=== PATIENT | male | born 1935 | race Caucasian/White ===

== ENCOUNTER 2016-08-24 22:29 | Inpatient (IN) | payer MEDICARE, OTHER ==
[~2016-08-24] VITALS: Ht 175.3 cm; Wt 89.5 kg
--- NOTE | ~2016-08-24 | CON ---
PATIENT'S NAME: ALBERT ISAAC [facility] AGE: 81 Y [address] ROOM: G6214 [place], [place] [address] LOCATION: GICU ADMIT DATE: 08/24/2016 Consultation DISCHARGE DATE: FAMILY PHYSICIAN: PHYSICIAN, UNKNOWN ATTENDING PHYSICIAN: LES MERAZ REFERRING PHYSICIAN: Josephine Mathias MD HISTORY OF PRESENT ILLNESS: I saw this 81-year-old man in the ICU today. He was admitted primarily because of progressive weakness in his left upper and lower extremities. On initially questioning him, he said he did not notice any weakness; however, on further questioning, he said, within the past month, he has noticed that his left upper limb had been getting weaker, especially the abductors of the left shoulder, and this was not secondary to pain. His also noticed that there has also been some progressive weakness on the left side, and on questioning how she felt that this was new, that it just started the day before he was brought to [place] [facility]. He does not normally see any physician. He denies any headaches. He, within the past week, has noticed some urinary incontinence which, from history, sounds like urge incontinence rather than overflow incontinence. He has severe degenerative changes in his left hip resulting in severe pain in his left hip which has literally limited his ability to ambulate. 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 There was no other abnormality. He denies any problems with his vision. He has not noticed any weakness or numbness on the right side. Denies any numbness or tingling in the upper or lower extremities. Denies any chest pain. No abdominal pain. The x-ray of the left hip did show end-stage degenerative changes in the left hip. He denies any vomiting. He does not have any fecal incontinence. PAST MEDICAL HISTORY: Apart from the fusion of his right ankle, past medical history was nil of note. There were no other significant medical problems in the medical history. ALLERGIES: NO KNOWN ALLERGIES TO MEDICATION. MEDICATIONS: He is not on any medication except the oluo-afa-mctkwci health pills. FAMILY HISTORY: Noncontributory. SOCIAL HISTORY: He used to smoke about a pack of cigarettes per day, stopped smoking about 42 PATIENT'S NAME: ALBERT ISAAC [facility] AGE: 81 Y [address] ROOM: G62[address] [place], [place] [address] LOCATION: [facility] ADMIT DATE: 08/24/2016 Consultation DISCHARGE DATE: FAMILY PHYSICIAN: PHYSICIAN, UNKNOWN ATTENDING PHYSICIAN: LES MERAZ years ago. He does not drink alcohol or use illegal drugs. 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 The rest of the review of systems is essentially negative. PHYSICAL EXAMINATION: GENERAL: On examination in the ICU, this is a 81-year-old right-handed male who is awake. He is alert. Does not appear to be in any acute distress. VITAL SIGNS: His blood pressure is 129/60, the pulse is 73 and irregular, respirations are 17, and temperature is 97.6. HEENT: Normocephalic. NECK: There is no tenderness on palpating the cervical spinous processes. No restriction of movement of the cervical spine. CHEST: Clear. CARDIAC: Heart rate is irregular. ABDOMEN: Soft. Normal bowel sounds. NEUROLOGICAL: Cranial nerve examination is normal except for left facial nerve weakness. The motor examination shows a marked weakness of the left deltoid. Moderate weakness of the left upper extremity evidenced by left upper extremity drift. Grossly, the left lower extremity strength is normal except for reduced strength in the left extensor hallucis longus. The reflexes are normal. There is no Babinski. DIAGNOSTIC DATA: He had an MRI of the brain done after he had a CT scan, shows a right frontal lesion with accompanying edema and mass effect. 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 PLAN: At this time is to: 1. Arrange to go ahead and excise the tumor. 2. With regard to his urinary symptoms, I was going to get the urologist to see him. At this time, he wants us to deal with the intracranial lesion first, and then after that, any one could deal with the left hip osteoarthritis, he will definitely need a total hip on that left side. JOSEPHINE MATHIAS MD PATIENT'S NAME: ALBERT ISAAC [facility] AGE: 81 Y [address] ROOM: [place] [address] LOCATION: [facility] ADMIT DATE: 08/24/2016 Consultation DISCHARGE DATE: FAMILY PHYSICIAN: PHYSICIAN, UNKNOWN ATTENDING PHYSICIAN: LES MERAZ/zach /[id number] d: 08/25/16 1758 t: 08/31/16 1413, CONSULTATION REPORT
--- NOTE | ~2016-08-24 | CON ---
PATIENT'S NAME: ALBERT ISAAC [facility] AGE: 81 Y [address] ROOM: [place] [address] LOCATION: GICU ADMIT DATE: 08/24/2016 Consultation DISCHARGE DATE: FAMILY PHYSICIAN: PHYSICIAN, UNKNOWN ATTENDING PHYSICIAN: LES MERAZ DATE OF CONSULTATION: 08/25/2016 REFERRING PHYSICIAN: Tiffany Mathias MD REASON FOR CARDIOLOGY CONSULTATION: Atrial fibrillation. HISTORY OF PRESENT ILLNESS: This is a 81-year-old male, who was transferred from [place], [place] after finding a brain mass of 3.1 cm in his right frontal lobe. He initially presented there for evaluation due to leg pain and weakness as well as facial droop. He states he does not regularly see a healthcare provider and denies any health history other than this recent complaints of leg pain and difficulty standing. He states "I am very healthy and always very active." This consult requested due to him being found to be in an atrial fibrillation with controlled rate response on his EKG both in [place] and upon admission to [facility]. He denies chest pain, shortness of breath, dyspnea on exertion, palpitations, presyncope, syncope, nausea, or vomiting. PAST MEDICAL HISTORY: The patient denies any past medical history. FAMILY HISTORY: No noted family history from patient's recollection. SOCIAL HISTORY: The patient is a former cigarette smoker. He smoked 1 pack of cigarettes per day for a total of 10 years. He denies alcohol or illicit drug use. CURRENT MEDICATIONS: 1. Decadron 4 mg IV every 6 hours. 2. Pepcid IV 20 mg twice daily. 3. NovoLog subcu on a moderate sliding scale per every 6 hour Accu-Cheks. MEDICATION ALLERGIES: No known medication allergies. REVIEW OF SYSTEMS: Pertinent positives listed in the HPI. All other review of systems evaluated and negative. PATIENT'S NAME: ALBERT ISAAC [facility] AGE: 81 Y [address] ROOM: [place] [address] LOCATION: [facility] ADMIT DATE: 08/24/2016 Consultation DISCHARGE DATE: FAMILY PHYSICIAN: PHYSICIAN, UNKNOWN ATTENDING PHYSICIAN: LES MERAZ DIAGNOSTICS: [facility] evaluation shows sodium of 139, potassium 3.8, BUN of 15, creatinine 1.1, glucose of 252, magnesium of 2.2. Cardiac enzymes show a CPK of 35, CK-MB of 1.1, and troponin I of less than 0.04. He also has a proBNP of 811. PHYSICAL EXAMINATION: VITAL SIGNS: Temperature 98.2, pulse 88, respirations 22, blood pressure 118/53, O2 saturation 95% on room air. The patient weighs 89.2 kg. SKIN: [place], warm, and dry. EYES: Sclerae are clear. No xanthelasmas. ENT: Oral mucosa is pink and moist. No jugular venous distention. No carotid bruits. CHEST: Respirations are even and unlabored. LUNGS: Clear to auscultation. HEART: Irregular rate and rhythm. Normal S1 and S2. No murmurs, rubs, or gallops. ABDOMEN: Soft and nontender. MUSCULOSKELETAL: Noted decreased muscle strength to his left upper and lower extremities. He has normal strength to his right upper and lower extremities against resistance. EXTREMITIES: Peripheral pulses palpable. No clubbing or cyanosis noted. Does have mild to moderate lower extremity edema present. PSYCH: Alert and oriented. Mood and affect are appropriate. IMPRESSION AND PLAN: Per Dr. Virginia Ramires, 1. Atrial fibrillation with controlled ventricular rate. Unsure of the chronicity of this diagnosis due to him not having any medical treatment previously other than his most recent admission. We will check an echocardiogram to fully evaluate ejection fraction as well as look for wall motion and valvular abnormalities. No sinus symptoms at this time of acute decompensated congestive heart failure or acute coronary syndrome. 2. Right frontal lobe brain mass, currently under the care of the Hospitalist Service as well as Neurosurgery. 3. Hypertension, currently awaiting full medication reconciliation of his home medications to see if there was previous medications that we could adjust, otherwise, we will need to add medications to fully control his hypertension. Once again, this is an unfortunate 81-year-old male, admitted to [facility] with stroke symptoms and then transferred to [facility] after finding a brain mass, which could possibly be suggestive of a glioblastoma multiforme. He was found to be in atrial fibrillation but once again, his rates are controlled. Awaiting echo for full evaluation of his valves and PATIENT'S NAME: ALBERT ISAAC [facility] AGE: 81 Y [address] ROOM: [address] [place] [address] LOCATION: [facility] ADMIT DATE: 08/24/2016 Consultation DISCHARGE DATE: FAMILY PHYSICIAN: PHYSICIAN, NYA ATTENDING PHYSICIAN: LES MERAZ left ventricular ejection fraction. Depending on the echo, we will adjust echo findings and we will adjust medications. At this time, he is not a candidate for anticoagulation given his large brain mass in the right frontal lobe. We will continue to monitor, evaluate, and treat as appropriate. Thank you for this consult. Thank for allowing [facility] to interact in the care of this patient. SHIKHA ARAMBULA APRN FOR MD TYRON BURKETT/zach /[id number] d: 08/25/16 1406 t: 09/11/16 1134, CONSULTATION REPORT
--- NOTE | ~2016-08-24 | ECHO ---
Transthoracic Echocardiography Report (TTE) Demographics Patient Name ALBERT ISAAC Date of Study 08/25/2016 Patient Number [id number] Visit Number [id number] Date of 1935 Room Number G6214 Accession Number [id number] Gender Male Age 81 year(s) Referring Lilian Martin MD Meat Packer Rigo Carmona RDCS, Physician RVT Physician Interpreting Keyla Coleman Confidential Secretary Physician Supervising Ordering Physician Lilian Martin MD, MD/MLP Nurse Stress Mechanical Systems Design Engineer Conclusions Contractility Score Summary Normal Left Ventricular contractility was noted. Summary Technically difficult exam due to body habitus. Normal LV/RV size and systolic function. The estimated left ventricular ejection fraction is 60-65%. Severe biatrial enlargement. Dilated IVC with poor inspiratory collapse consistent with elevated RA pressure. The aortic valve is moderately sclerotic. There is moderate pulmonary hypertension. The pulmonary pressure (RVSP) is 49.57 mmHg. IVC imaging is consistent with normal RA pressures. Procedure Type of Study TTE procedure:2D Echocardiogram, Echo with Contrast. Procedure Date Date: 08/25/2016 Start: 12:02 PM Study Location: Inpatient Portable Technical Quality: Adequate visualization Indications:Atrial fibrillation. Appropriate Use Criteria: 9 Patient Status: Routine Contrast Medium: Definity. Amount - 4 ml HR: 65 bpm BP: 141/61 mmHg M-Mode/2D Measurements LV Diastolic Dimension: 4.55 cm LV Systolic Dimension: 1.38 cm LV Septum Diastolic: 0.85 cm LV PW Diastolic: 0.99 cm AO Root Dimension: 3 cm Cardiac Output: 6.64 l/min AV Cusp Separation: 1.8 cm RV Diastolic Dimension: 3.03 cm LA volume: 108 ml LVOT: 2.2 cm RV Base: 4.27 cm LVOT VTI: 26.9 cm RV Mid: 2.21 cm LV Stroke volume: 102.2 ml TAPSE: 2.42 cm TDI-S': 12.1 cm/s Doppler Measurements AV Peak Velocity: 2.14 m/s MV Peak E-Wave: 1.2 m/s AV Peak Gradient: 18.32 mmHg AV Mean Gradient: 11 mmHg MV P1/2t: 57 msec LVOT Peak Velocity: 1.22 m/s TR Velocity:2.94 m/s PV Peak Velocity: 1.3 m/s TR Gradient:34.57 mmHg PV Peak Gradient: 6.76 mmHg Estimated RAP:15 mmHg Estimated PASP: 49.57 mmHg Estimated RVSP: 50 mmHg E' Septal Velocity: 0.09 m/s E' Lateral Velocity: 0.11 m/s Findings Left Ventricle Diastolic function indeterminate due to patient's arrhythmia. The left ventricle is normal in size . Right Ventricle Normal right ventricular size and function. Left Atrium The left atrium is severely dilated by LA volume index measurement. Right Atrium The right atrium is severely dilated. IVC imaging is consistent with normal RA pressures. IVC measures 2.1 and collapses with inspiration. Mitral Valve Mild mitral regurgitation by color Doppler. Mild mitral annular calcification. Aortic Valve The aortic valve is moderately sclerotic. The aortic valve is moderately calcified with reduced leaflet motion of the non-coronary cusp. Tricuspid Valve Mild to moderate tricuspid regurgitation by color Doppler. There is moderate pulmonary hypertension. The pulmonary pressure (RVSP) is 49.57 mmHg. Pulmonic Valve Normal pulmonic valve structure and function. Trace PI. Pericardial Effusion No evidence of pericardial effusion. Miscellaneous Visualized portions of the aortic root and ascending aorta appear normal in size. Pleural Effusion No evidence of pleural effusion. Contractility Score LV regional wall motion:(0-Non visualized 1-Normal 2-Hypokinesis 3-Akinesis 4-Dyskinesis 5-Aneurysm) Signature dtt: CONNIE JURADO dtd: 08/25/16 1202 Physician Self Edit
--- NOTE | ~2016-08-24 | CON ---
PATIENT'S NAME: ALBERT ISAAC [facility] AGE: 81 Y [address] ROOM: [place] [address] LOCATION: GICU ADMIT DATE: 08/24/2016 Consultation DISCHARGE DATE: FAMILY PHYSICIAN: PHYSICIAN, UNKNOWN ATTENDING PHYSICIAN: LES MERAZ DATE OF CONSULTATION: 08/30/2016 REFERRING PHYSICIAN: Tiffany Mathias MD REASON FOR CONSULTATION: Possible colon mass. HISTORY OF PRESENT ILLNESS: This is a very pleasant 81-year-old male, who was transferred from [place] after findings of a 3.1 cm brain mass in the right frontal lobe. He initially presented with leg pain and weakness as well as facial droop. He did undergo right frontal brain tumor craniotomy and total excision of the tumor on 08/29/2016. During a CT scan of the thorax, which was reviewed per Dr. Mathias and Radiology, there was questionable mass at the hepatic flexure within the colon. We were asked to see in consultation. The patient was seen and examined. He denies any history of colonoscopy. The patient does state that he intermittently has some lower abdominal discomfort. He admits not frequently doctors or healthcare facilities often. The patient does state that intermittently, he did have some bright red blood per rectum. He denies any baljit abdominal pain at this time. No nausea or vomiting, chest pain, chest pressure, shortness of breath, fever, chills, night sweats. PAST MEDICAL HISTORY: Right frontal brain tumor, status post excision and craniotomy. PAST SURGICAL HISTORY: Craniotomy. No history of upper endoscopy or colonoscopy. SOCIAL HISTORY: The patient is a former cigarette smoker. He smoked a pack of cigarettes per day for a total of 10 years. Denies any alcohol or illicit drug use. FAMILY HISTORY: The patient denies any gastrointestinal diseases or cancers within his family to his recollection. ALLERGIES: NO KNOWN MEDICATION ALLERGIES. PATIENT'S NAME: ALBERT ISAAC [facility] AGE: 81 Y [address] ROOM: [place] [address] LOCATION: GICU ADMIT DATE: 08/24/2016 Consultation DISCHARGE DATE: FAMILY PHYSICIAN: PHYSICIAN, UNKNOWN ATTENDING PHYSICIAN: LES MERAZ CURRENT MEDICATIONS: Please refer to the medication administration record. REVIEW OF SYSTEMS: A 10-point review of systems was completed. All were negative except for those identified in the history of present illness. PHYSICAL EXAMINATION: GENERAL: A pleasant 81-year-old male, sitting in the chair, who appears to be in no acute distress. VITAL SIGNS: Temperature 97.9, pulse of 77, respirations of 18, blood pressure 149/64, and oxygen saturations 95% on room air. SKIN: [place], warm, dry. No jaundice. HEENT: Head is normocephalic and atraumatic. Pupils are equal, round, and reactive to light. Sclerae clear. Nonicteric. Oral mucosa is pink and moist. No thyromegaly. NECK: Soft and supple. CARDIOVASCULAR: Regular. Normal S1 and S2. RESPIRATORY: Respirations even and unlabored. LUNGS: Clear to auscultation. ABDOMEN: Soft, round, nondistended, nontender. Bowel sounds positive x4 quadrants. MUSCULOSKELETAL: No muscle weakness or atrophy. EXTREMITIES: No clubbing, cyanosis, or edema. NEUROLOGICAL: Grossly nonfocal. LABORATORIES AND DIAGNOSTICS: White blood cell count of 17.6, hemoglobin of 13.8, hematocrit of 42.2, platelet of 267. Chemistry panel includes a glucose of 139, BUN of 18, creatinine 0.7, sodium 138, potassium of 4.3, chloride of 105, CO2 of 25, albumin of 2.8, phosphorus of 2.7. Again, the patient did undergo a CT of his thorax with possible mass noted at the hepatic flexure within the large colon. ASSESSMENT AND PLAN: Again, this is a very pleasant 81-year-old male, who presents to an outside facility, ultimately finding of right frontal brain mass, that was excised and underwent craniotomy. We were asked to see in consultation for possible hepatic flexure colon mass seen on the CT scan. At this time, the patient and patient's are insistent about going home and performing a screening colonoscopy completed as an outpatient. It was discussed in depth with the patient as well as Dr. Mathias as the patient will be made an appointment following us in clinic in approximately 1 to 2 weeks, and we will continue to follow the patient, so he will undergo colonoscopy for further evaluation with possible biopsy and diagnosis of possible hepatic flexure mass. We will also review the CAT scan with Dr. Martinez for complete examination. PATIENT'S NAME: ALBERT ISAAC [facility] AGE: 81 Y [address] ROOM: [address] [place], [place] [address] LOCATION: [facility] ADMIT DATE: 08/24/2016 Consultation DISCHARGE DATE: FAMILY PHYSICIAN: PHYSICIAN, NYA ATTENDING PHYSICIAN: LES MERAZ Thank you for this consult and allowing us to participate in the care of this patient. SUMA SHUKLA APRN FOR MD LINDSAY PETTIT/zach /[id number] d: 08/30/16 2354 t: 09/08/16 1834, CONSULTATION REPORT
--- NOTE | ~2016-08-24 | CON ---
PATIENT'S NAME: MARLIN [facility] AGE: 81 Y [address] ROOM: [place] [address] LOCATION: [facility] ADMIT DATE: 08/24/2016 Consultation DISCHARGE DATE: FAMILY PHYSICIAN: PHYSICIAN, UNKNOWN ATTENDING PHYSICIAN: LES MERAZ DATE OF CONSULTATION: 08/26/2016 REFERRING PHYSICIAN: Tiffany Mathias MD REASON FOR REFERRAL: Abnormal CT of the chest. HISTORY OF PRESENT ILLNESS: The patient is a 81-year-old gentleman admitted with neurologic changes and a mass in his brain. Subsequent evaluation by chest x-ray and CT scan demonstrated multiple pulmonary masses. PAST MEDICAL HISTORY: ALLERGIES: NONE. MEDICATIONS: Please refer to the nurses notes. ILLNESSES: Degenerative arthritis. FAMILY HISTORY: Unremarkable. SOCIAL HISTORY: . No alcohol use. Very distant tobacco use. SYSTEM REVIEW: As per HPI. PHYSICAL EXAMINATION: GENERAL: Awake and alert, in no distress. ENT: Unremarkable. NECK: Normal. CHEST: Hyperinflated. LUNGS: Diminished. HEART: Regular. ABDOMEN: Nontender. PATIENT'S NAME: ALBERT ISAAC [facility] AGE: 81 Y [address] ROOM: [place] [address] LOCATION: [facility] ADMIT DATE: 08/24/2016 Consultation DISCHARGE DATE: FAMILY PHYSICIAN: PHYSICIAN, UNKNOWN ATTENDING PHYSICIAN: LES MERAZ EXTREMITIES: No clubbing or edema. ASSESSMENT: Multiple pulmonary masses, which appeared to be metastatic. That is likely the case with the brain lesion as well. Primary has not been established. PLAN: We will perform CT-guided needle biopsy of the most accessible pulmonary mass to establish cell type. MD SARAH AMAYA/modl /[id number] d: 08/26/16918 t: 09/15/16 1016, CONSULTATION REPORT
--- NOTE | ~2016-08-24 | HP ---
PATIENT'S NAME: ALBERT ISAAC [facility] AGE: 81 Y [address] ROOM: [facility] [place] [address] LOCATION: [facility] ADMIT DATE: 08/24/2016 History & Physical DISCHARGE DATE: FAMILY PHYSICIAN: PHYSICIAN, UNKNOWN ATTENDING PHYSICIAN: LES MERAZ DATE OF SERVICE: ADDENDUM: Code status: Full code. Time spent in care on the day of admission 40 minutes including chart review, interviewing the patient, examining the patient, addressing all the questions and concerns that the patient and the patient's had. I also went over the plan of care with the patient, the patient's , and the ICU nurses. MD KAUR LAIRD/zach /[id number] D: [id number] T: [id number] HISTORY & PHYSICAL
--- NOTE | ~2016-08-24 | CON ---
PATIENT'S NAME: MARLIN [facility] AGE: 81 Y [address] ROOM: [place] [address] LOCATION: [facility] ADMIT DATE: 08/24/2016 Consultation DISCHARGE DATE: FAMILY PHYSICIAN: PHYSICIAN, UNKNOWN ATTENDING PHYSICIAN: LES MERAZ DATE OF CONSULTATION: 08/26/2016 REFERRING PHYSICIAN: Tiffany Mathias MD HISTORY OF PRESENT ILLNESS: The patient is a 81-year-old male, admitted secondary to progressive left- sided weakness. On evaluation, the patient was noted to have a right frontal lobe brain mass. The patient has experienced urinary incontinence along with frequency, but denies urgency. The patient denies a history of prior prostate problems. I had nursing staff check postvoid residuals. His residuals varied from 0 to 198 mL, although these were obtained while lying down which certainly could decrease his ability to void. PAST MEDICAL HISTORY: The patient denies any medical problems. PAST SURGICAL HISTORY: Right ankle fusion. MEDICATIONS: None other than gyut-alg-uxodino at admission. ALLERGIES: NONE. SOCIAL HISTORY: The patient is a nonsmoker, stopping 40 years ago. He does not consume alcohol. REVIEW OF SYSTEMS: Negative. PHYSICAL EXAMINATION: GENERAL: An elderly male, in no acute distress. LUNGS: Clear bilaterally. CARDIAC: Regular rhythm and rate. ABDOMEN: Benign. : Within normal limits. RECTAL: Normal tone. Prostate smooth, approximately 25 to 30 g in size. PATIENT'S NAME: ALBERT ISAAC [facility] AGE: 81 Y [address] ROOM: [place] [address] LOCATION: [facility] ADMIT DATE: 08/24/2016 Consultation DISCHARGE DATE: FAMILY PHYSICIAN: PHYSICIAN, UNKNOWN ATTENDING PHYSICIAN: LES MERAZ IMPRESSION: Probable benign prostatic hyperplasia with lower urinary tract symptoms. PLAN: We will start Flomax and then recheck a bladder scan, postvoid residuals. MD CLYDE HUTCHINSON/zach /[id number] d: 08/26/16 1153 t: 09/11/16 1915, CONSULTATION REPORT
--- NOTE | ~2016-08-24 | DS ---
PATIENT'S NAME: [facility] AGE: 81 Y [address] ROOM: [id number] [place], [place] [address] LOCATION: [facility] ADMIT DATE: 08/24/2016 Discharge Summary DISCHARGE DATE: 09/05/2016 FAMILY PHYSICIAN: Physician, Unknown ATTENDING PHYSICIAN: Leon Quintana PRINCIPAL DIAGNOSES: 1. Right frontal brain mass adenocarcinoma. 2. Status post right frontal craniotomy with total excision of tumor, microsurgically. 3. Concern for colon cancer. 4. Atrial fibrillation. 5. Hypertension. 6. Leukocytosis. 7. Benign prostatic hypertrophy. 8. Hyperglycemia. HOSPITAL COURSE: This is a 81-year-old male who was found to have a right frontal mass by CT scan at an outlying facility. He was referred to our hospital for admission. Hospitalists were admitting, Neurosurgery was consultants. He was placed in the ICU for close monitoring, started on IV Decadron and tight blood pressure control. An MRI of the brain for further investigation, confirmed a 3.5 cm enhancing mass in the right frontal lobe with adjacent mass effect and edema. Neurosurgery made recommendations for surgical removal. Preoperative evaluation found the patient to be in atrial fibrillation. So, a cardiology consultation was obtained. Echocardiogram showed a preserved LV ejection fraction of 60% to 65%. Notably of severe biatrial enlargement with a moderately sclerotic aortic valve. There was also known moderate pulmonary hypertension. He was observed on telemetry. He was not a candidate for oral anticoagulation given his frontal lobe mass. He was rate controlled. He was ultimately given cardiac clearance. The patient did have some urinary retention as noted on bladder scan. A urology consultation was obtained. A Chirinos catheter was placed. A prostate was slightly enlarged, so he was started on Flomax. Further investigation by chest x-ray showed right infrahilar area pulmonary mass with additional smaller rounded areas concerning for pulmonary nodules. A CT scan of the chest was obtained to show innumerable noncalcified pulmonary masses bilaterally measuring up to 4.3 cm. Concerning for metastatic disease, a pulmonology consult was obtained and recommendations were made for CT guided needle biopsy. After risks, benefits, and alternatives were discussed, the patient elected to not undergo a lung biopsy. He was transitioned to the neuro trauma unit. He showed he has some mild improvement from steroid therapy as well as physical occupational therapy standpoint. He was optimized PATIENT'S NAME: AL[facility]ERT ISAAC [facility] AGE: 81 Y [address] ROOM: [id number] [place], [place] [address] LOCATION: [facility] ADMIT DATE: 08/24/2016 Discharge Summary DISCHARGE DATE: 09/05/2016 FAMILY PHYSICIAN: Physician, Unknown ATTENDING PHYSICIAN: Leon Quintana for surgery. Risks, benefits, and alternatives were discussed and the patient proceeded on 08/29, where he underwent the excision of the tumor with craniotomy. Postoperatively, he was taken to the intensive care unit for close observation, placed on Dilantin for seven days for seizure prophylaxis. Observed on telemetry with routine nursing care. Restarted on physical and occupational therapy. He did not have any atrial fibrillation problems, his rates were controlled. The biopsy from the brain showed adenocarcinoma which was felt to be metastatic in nature. This was concerning for primary etiology in the colon. Where a CT abdomen and pelvis had showed an apple-core lesion in the right colon suspicion for of the primary malignancy. It had a nonobstructive pattern. Gastroenterology consultation was obtained. Initially, the patient wished to follow up as an outpatient; however, changed his mind. It took 2 days to complete the prep, requiring an NG tube. In the meantime, having postop delirium, had a fall without complications, CT scan of the brain confirmed that it was stable and no evidence of trauma from the fall. He may progress before having the colonoscopy completed. In the colonoscopy, he had extensive melanosis coli throughout the colon, but no large lesions were seen in the ascending sigmoid colon and rectum. There was noted slightly deformed area of the cecum at the junction with the terminal ilium. Multiple biopsies were taken for pathology. He recovered without complication. An oncology consultation was obtained with recommendations based upon final biopsy results. The patient's postoperative delirium state had vastly improved over the next few days. He had made some progress with his therapies, but not well enough to be independent at home. Recommendations were for swing bed, transitioned, his care management helped to arrange this. Also note, the patient has a significant history of left hip and knee osteoarthritis, x-rays confirmed this. Consultation with Dr. Burr was obtained and the patient refused any injection. DVT prophylaxis was maintained with pneumatic compression devices in lieu of anticoagulation that was contraindicated in the patient's case. RADIOLOGIC IMAGING: Pertinent positive information as gathered above and MRI of the brain on August 25 showed a 3.5 cm enhancing mass in the right frontal lobe with adjacent mass effect and edema. A followup MRI postoperatively showed complete excision of the right frontal lobe mass without evidence of complication. A CT of the brain on August 31 after fall showed no trauma and stable CT of the head postoperatively. Chest x-ray on August 25 showed concerns for pulmonary nodules further evidenced by a CT of the thorax with contrast showing innumerable noncalcified pulmonary masses bilaterally measuring up to 4.3 cm. PATIENT'S NAME: [facility] AGE: 81 Y [address] [place] [facility] [place], [place] [address] [facility] ADMIT DATE: 08/24/2016 Discharge Summary DISCHARGE DATE: 09/05/2016 FAMILY PHYSICIAN: Physician, Unknown ATTENDING PHYSICIAN: Leon Quintana KUB of the abdomen because of abdominal distention showed some early concerns of obstruction, but CT of the abdomen and pelvis showed a nonobstructive bowel pattern, but did show an enhanced apple-core lesion in the right colon. Of interesting note, there was also noted small bilateral adrenal nodules as well. Left hip x-ray shows severe degenerative changes of the left hip with joint space narrowing, deformity of the femoral head, extensive osteophyte formation, extensive subchondral cyst at the left femoral head and left acetabulum. Left knee x-ray showed degenerative changes at the knee most pronounced anterior and lateral knee compartments with small joint effusion. No acute fracture or dislocation seen. LABORATORY DATA: Pertinent results of cardiac enzymes were negative. White blood cell count on 09/05 showed a descending white blood cell count of 18.2 from 27.3, hemoglobin of 13.2, hematocrit 39.3, and a platelet count of 208. Chemistry panel on 09/04 showed a glucose of 118, BUN of 12, creatinine of 0.5, it was normal during his stay. Sodium 136, potassium 4.2, chloride 102, CO2 of 26, calcium is 7.7, phosphorus of 2.9, magnesium 1.9, and GFR greater than 60. Sedimentation rate of 22, hemoglobin A1c of 6.6, INR 1.1. Pre- albumin of 11, TSH of 1.860, CEA of 7.6. DISCHARGE MEDICATIONS: 1. Amlodipine 5 mg p.o. twice daily. 2. Decadron 2 mg p.o. 3 times daily x3 days, stop date is 09/07 at 0700 hours. 3. Decadron 2 mg p.o. twice daily, indefinitely starting 09/07 at 2100 hours. 4. Pepcid 20 mg p.o. twice daily. 5. Lasix 20 mg p.o. every morning, stop date 09/06 at 0900 hours. 6. Hydrochlorothiazide 12.5 mg p.o. every day. 7. NovoLog moderate sliding scale before meals and at bedtime. 8. Melatonin 6 mg p.o. every night at bedtime. 9. Dilantin 200 mg p.o. twice daily through 09/05 at 10:00 a.m. 10. Flomax 0.4 mg p.o. daily at 1900 hours. 11. Colon formula p.o. every day and water. 12. Tylenol 325-650 mg p.o. every 4 hours as needed. 13. [place] 5/325 mg 1-2 tablets p.o. every 4 hours needed. 14. D50 IV push for hypoglycemia as per protocol. 15. Glucagon 1 mg subcutaneous for hypoglycemia as per protocol. 16. Glucose 16 g p.o. hypoglycemia as per protocol. 17. [place] nasal spray 2 sprays each naris as needed for dryness. DISCHARGE INSTRUCTIONS: The patient will be discharged to [facility] PATIENT'S NAME: AL[facility]ERT ISA[facility] AGE: 81 Y [address] ROOM: [place] [address] LOCATION: [facility] ADMIT DATE: 08/24/2016 Discharge Summary DISCHARGE DATE: 09/05/2016 FAMILY PHYSICIAN: Physician, Unknown ATTENDING PHYSICIAN: Leon Quintana under the care of Davida Roper APRN. I spoke with her on the phone. She has graciously accepted the patient. The patient will be transported by his significant other by private auto. Followup appointments to include Neurosurgery Dr. Mathias. His office will call when to schedule the appointment. [facility] cardiology in the next [address] Felix in the next [address]. [address] Burr in the next 2 weeks for his left hip and knee. To see the radiation oncologist, Dr. Templeton in 2 weeks. At the time of discharge, colon biopsy results are pending. Dr. Gonzales still felt like the tissue if negative could be further evaluated with specific staining or molecular evaluation. He may benefit from interventional therapy. We encouraged the patient to follow up with Oncology to review those results and information. He stated complete understanding of this. CODE STATUS: Full code. DIET: As tolerated. Weightbearing is as tolerated with occupational, physical therapy to evaluate and treat the patient as indicated. Blood glucose checks with before each meal and at bedtime. Urinary catheter has been removed and the patient has been voiding adequately on his own. Further recommendations were made to continue Flomax. Rehab potential is fair. Discharge potential is fair. The patient and his family are well aware of the condition and prognosis of the patient. Above line of management discussed with the patient and his significant other, whose all questions were answered with statements of understanding. Total time arranging discharge with collaborating specialist, care management, nursing, and therapies was greater than 30 minutes. Thank you for allowing us to participate in the care of this patient while at [facility]. PATIENT'S NAME: AL[facility]ERT ISA[facility] AGE: 81 Y [address] ROOM: [place] [address] LOCATION: [facility] ADMIT DATE: 08/24/2016 Discharge Summary DISCHARGE DATE: 09/05/2016 FAMILY PHYSICIAN: Physician, Unknown ATTENDING PHYSICIAN: Leon Quintana KEVON GARLAND APRN, APRN FOR MD YOANA RICHARDS/zach /[id number] CC: MD Tiffany Villareal MD Ann M Young, APRN d: t: 09/06/16 1243, DISCHARGE SUMMARY
--- NOTE | ~2016-08-24 | HP ---
PATIENT'S NAME: ALBERT ISAAC [facility] AGE: 81 Y [address] ROOM: [id number] [place], [place] [address] LOCATION: [facility] ADMIT DATE: 08/24/2016 History & Physical DISCHARGE DATE: FAMILY PHYSICIAN: PHYSICIAN, UNKNOWN ATTENDING PHYSICIAN: LES MERAZ DATE OF SERVICE: CHIEF COMPLAINT: Left lower extremity weakness. HISTORY OF PRESENT ILLNESS: This is a 81-year-old male, who does not have a primary care physician and rarely seen a physician in the past, who is also a poor historian. The story is directly obtained from the patient and the patient's spouse. The story is that the patient chronically has this left hip pain from advanced degenerative joint disease. However, recently, his left lower extremity besides the hip pain has been getting weaker and weaker. He also has a new onset urinary incontinence about 1 week ago. Because of the worsening of the weakness of the left lower extremity, the patient's was concerned about the patient, therefore, today, they went to [facility] for evaluation. Over there, the patient had a blood work performed, which was unremarkable, and CT scan of the brain without contrast over there showed 3.1 cm mass in the right frontal lobe with vasogenic edema. Mass effect with 10 mm ibfng-es-qcrs subfalcine herniation and effacement of the right lateral ventricle. Differential consideration include glioblastoma multiforme, metastatic disease, and brain abscess in the appropriate clinical setting. The patient also had a CT of the lumbar spine without contrast due to the concern of the urinary incontinence of one-week onset showed severe degenerative changes involving the lumbar spine. No evidence of acute bony abnormality. The patient also had x-ray of the left hip performed, showed end-stage degenerative changes of left hip. No acute fracture or dislocation. The patient also had EKG performed showed atrial fibrillation with a heart rate in the 80, not sure if this is new or this is chronic given that the patient does not regularly see a physician. Upon further questioning, the patient denies any headache or blurry vision or nausea or vomiting or sensation loss or fecal incontinence or fecal retention or any other symptoms. The only significant complaint is left hip pain, which is chronic, and also acute on chronic left lower extremity weakness, worsening in the last few weeks. No chest pain. No shortness of breath. No palpitation and no other symptoms. Again, the patient is a poor historian. The story is obtained directly from the patient and the patient's spouse. The PATIENT'S NAME: ALBERT ISAAC [facility] AGE: 81 Y [address] ROOM: [place] [address] LOCATION: [facility] ADMIT DATE: 08/24/2016 History & Physical DISCHARGE DATE: FAMILY PHYSICIAN: PHYSICIAN, UNKNOWN ATTENDING PHYSICIAN: LES MERAZ spouse could not also provide much history either. The spouse denies any confusion in the patient. The patient was always alert and oriented x3 and never had a slurred speech or seizure activity. REVIEW OF SYSTEMS: As mentioned in the history of present illness. All other systems reviewed and negative except those mentioned in the history of present illness. PAST MEDICAL HISTORY: None according to the patient. ALLERGIES: NONE ACCORDING TO THE PATIENT. HOME MEDICATIONS: None according to the patient. SOCIAL HISTORY: The patient was a former cigarette smoker about one pack per day for 10 years. He quit about 40 years ago. The patient denies any alcohol or any illegal drug use. PAST SURGICAL HISTORY: Status post right foot surgery in the past. The patient denies any other surgery according to the patient. FAMILY HISTORY: Both parents from advanced age. Father from Alzheimer, mother also from Alzheimer. PHYSICAL EXAMINATION: VITAL SIGNS: At the time of my dictation, temperature 98, blood pressure 170/70, heart rate 80, respirations 14, saturation 98% on room air. Pain 0/10. GENERAL APPEARANCE: Alert and oriented x3. He is somewhat slow in processing information, but he is oriented x3 and answers questions appropriately. No acute distress. HEENT: Pupils are equally round, and reactive to light. Extraocular muscles intact. Pupils size about 4 mm. Bilaterally reactive to light. Anicteric sclerae. Visual field is intact in all 4 quadrants. Nasal turbinates are normal bilaterally. Moist oral mucosa. Slight left-sided facial droop. No tongue deviation upon protrusion. No slurred speech. NECK: No JVD. No cervical lymphadenopathy. No neck stiffness. PATIENT'S NAME: ALBERT ISAAC [facility] AGE: 81 Y [address] ROOM: [place] [address] LOCATION: [facility] ADMIT DATE: 08/24/2016 History & Physical DISCHARGE DATE: FAMILY PHYSICIAN: PHYSICIAN, UNKNOWN ATTENDING PHYSICIAN: LES MERAZ CARDIOVASCULAR: Irregularly irregular rate and rhythm. No murmur. No rubs, no gallops. RESPIRATORY: Clear. ABDOMEN: Obese, soft, nontender, nondistended, normal bowel sounds, no hepatosplenomegaly. No palpable mass. EXTREMITIES: Bilateral pitting edema in bilateral lower extremities in anterior shins. SKIN: No ulcer, no rash, no cyanosis. NEUROLOGIC: Cranial nerves 2 through 12 are remarkable for a slight facial droop on the left side when asked to smile or show teeth. Sensation is intact. Vibration, however, somewhat decreased in the left lower extremity. Muscle strength about 4/5 on the left lower extremity. The patient says that it is because of left hip pain. Ucyvpf-xx-rqpl intact. Lodn-gb-lwqc intact. Babinski is positive in the left foot. Deep tendon reflex difficult to assess given the patient has edema. Sensation intact. Gait not assessed due to fall risk. Proprioception intact. No slurred speech. No tongue deviation upon protrusion. Pronator drift negative bilaterally. MUSCULOSKELETAL: Left hip pain to palpation due to osteoarthritis. Range of motion is somewhat limited due to pain in the left lower extremity. Muscle strength is 4/5 in the left lower extremity. LABORATORY DATA: Blood work from the outside facility today on admission shows CK-MB 1.2, troponin 0.08, CPK 42. BUN 14, creatinine 0.9, glucose 107, calcium 9.2. AST 19, ALT 22, alkaline phosphatase 86, total bilirubin 0.5, total protein 7.2, albumin 3.4, sodium 139, potassium 4.2, chloride 102. White blood cells 11.5, hemoglobin 14.7, hematocrit 43.7, platelet 297. IMAGING STUDIES: EKG on admission shows atrial fibrillation with heart rate in the 80. No prior EKG for comparison. CT of the brain without contrast on admission from the outside facility shows 3.1 cm mass in the right frontal lobe with vasogenic edema. Mass effect with 10 mm wbtba-qm-waml subfalcine herniation and effacement of the right lateral ventricle. Differential consideration includes glioblastoma multiforme, metastatic disease, and brain abscess in the appropriate clinical setting. CT of the lumbar spine without contrast on admission from the outside facility shows severe degenerative joint disease involving the lumbar spine. No evidence of acute bony abnormality. X-ray of the left hip on admission from the outside facility shows end-stage degenerative change of the left hip. No acute fracture or dislocation. PATIENT'S NAME: ALBERT ISAAC [facility] AGE: 81 Y [address] ROOM: [id number] [place], [place] [address] LOCATION: [facility] ADMIT DATE: 08/24/2016 History & Physical DISCHARGE DATE: FAMILY PHYSICIAN: PHYSICIAN, UNKNOWN ATTENDING PHYSICIAN: LES MERAZ ASSESSMENT AND PLAN: 1. Regarding his 3.1 cm mass in the right frontal lobe with vasogenic edema and mass effect with 10 mm rfmdk-fj-iwkt subfalcine herniation and effacement of the right lateral ventricle: Differential per CT report includes glioblastoma multiforme, metastatic disease, and brain abscess in the right clinical setting. Less likely is brain abscess given the patient is not septic, there is no fever, there is no leukocytosis. Probably is glioblastoma multiforme or metastatic disease. The plan has already been discussed with the on-call neurosurgeon, Dr. Mathias, since the transfer from the outside facility. The plan will be IV Decadron 10 mg, which he actually got from outside facility, we will continue with 4 mg q.6 hours; also IV Pepcid 20 mg b.i.d., he got it 1 dose outside already. Regular diet. Keep the systolic blood pressure less than 150. We will get a chest x-ray to rule out any lung mass to see if there is any primary lung cancer causing metastasis to the brain. We will also get MRI of the head with and without contrast to better visualize the brain mass. PT and OT. Currently, the patient is alert and oriented x3. Denies any headache or any nausea or vomiting. Neurosurgery will see the patient in the morning. I will give him IV Ativan 2 mg q.5 minutes p.r.n. for active seizure. Keppra could be considered, but I will defer to the neurosurgery evaluation first. Regarding possibility of other primary tumor causing metastasis to the brain, x-ray will be performed, if necessary, we will get a mendez CT including CT of the chest and abdomen and pelvis as part of the cancer workup. Further plan depends on clinical course. I will check vitals every 2 hours, and watch his blood pressure closely and control with IV hydralazine p.r.n. and IV labetalol p.r.n. to keep the blood pressure less than 150. 2. Regarding his atrial fibrillation, not RVR: Not sure if this is new or chronic given that there is no prior EKG for comparison, and the patient rarely sees a physician and does not have a primary care physician and has never been told he had atrial fibrillation. Of course, currently, the anticoagulation will be contraindicated in the setting of a brain mass, and his [id number] score is 2 points for age more than 75-year- old. He probably also has other medical problems including hypertension, but since he never sees a physician, I will not account this as part of the score. I will continue telemetry monitoring. Currently, heart rate is in 80. I will order IV Lopressor 2.5 to 5 mg q.4 hours p.r.n. for heart rate more than 110. I will get an echo transthoracic in the morning. Also, check labs in the morning including one set of cardiac enzymes. I will consult Cardiology in the morning for the long-term care of his atrial fibrillation. Currently, EKG does not show any ischemia. There is no chest pain. Therefore, the patient is not in acute coronary syndrome and also not in atrial fibrillation with RVR. One set of cardiac enzyme was performed in the outside facility and it was normal. 3. Deep venous thrombosis prophylaxis: He will be on compression devices. PATIENT'S NAME: ALBERT ISAAC [facility] AGE: 81 Y [address] ROOM: [place] [address] LOCATION: [facility] ADMIT DATE: 08/24/2016 History & Physical DISCHARGE DATE: FAMILY PHYSICIAN: PHYSICIAN, UNKNOWN ATTENDING PHYSICIAN: LES MERAZ In the setting of a brain tumor, pharmacological prophylaxis will be avoided in the risk of having a brain hemorrhage. CODE STATUS: DICTATION ENDS HERE. LES MERAZ MD CC/thomasl /[id number] D: [id number] T: [id number] HISTORY & PHYSICAL
--- NOTE | ~2016-08-24 | OR ---
PATIENT'S NAME: ALBERT ISAAC [facility] AGE: 81 Y [address] ROOM: [address] [address] LOCATION: [facility] ADMIT DATE: 08/24/2016 OR/Procedure Report DISCHARGE DATE: FAMILY PHYSICIAN: PHYSICIAN, UNKNOWN ATTENDING PHYSICIAN: LES MERAZ SURGEON: Tiffany Mathias MD ORTHOPEDIC ASSISTANT: DATE OF PROCEDURE: 08/29/2016 PREOPERATIVE DIAGNOSES: Right frontal brain tumor. POSTOPERATIVE DIAGNOSIS: Right frontal brain tumor. OPERATIONS PROPOSED AND PERFORMED: 1. Right frontal craniotomy and total excision of tumor microsurgically. 2. Microscope. 3. Duraplasty. 4. Stealth neuronavigational system to assist in total excision of tumor. 5. Application of Kevin head clamp. OPERATION IN DETAIL: Under general anesthesia, the patient was positioned supine. The head was fixed in a Kevin head clamp which was then attached to the bed. The right frontal region was prepped and draped in the usual fashion. Prior to prepping and draping, we registered the [employer] equipment on the computer, and after prepping and draping the patient, a curvilinear incision was then carried out extending from the temporal region, curving upwards and anteriorly. The pericranium as well as the temporalis muscle were incised and reflected from the skull using the Bovie. The scalp as well as the temporalis muscle and fascia were reflected as a unit and was retracted using fish hooks. Next, 3 bur holes were then carried out; 1 in the temporal region, and 2 in the frontal region, and a free frontotemporal bone flap was then fashioned out. Fortunately, the dura was stuck to the bone, and so the middle portion of the dura came off with the bone. Using the Stealth neuronavigational system, we were able to get in do a cerebrotomy at the area where the tumor was closest to the surface, and we were able to then identify the tumor. Next, we continued dissection in the plane between the tumor and normal brain. A microscope was brought in. With the aid of the microscope, we were able to completely excise the tumor. Prior to getting it all out, we took a piece and sent it to the pathology for frozen section which turned out to be metastatic tumor adenocarcinoma. Having completely excised the tumor, the wound was thoroughly irrigated with bacitracin irrigation. We then laid pieces of Oxycel on the wall of the cavity of the tumor for further hemostasis. Hemostasis was carried out primarily with bipolar cautery. Next, we went ahead and did a duraplasty to cover the region of the dural defect using the dural repair graft. Next, the bone flap was screwed to the rest of PATIENT'S NAME: ALBERT ISAAC [facility] AGE: 81 Y [address] ROOM: [address] [address] LOCATION: [facility] ADMIT DATE: 08/24/2016 OR/Procedure Report DISCHARGE DATE: FAMILY PHYSICIAN: PHYSICIAN, UNKNOWN ATTENDING PHYSICIAN: LES MERAZ the skull using the small Synthes plates, and the scalp was then closed in the usual 2-layered fashion. The patient tolerated the procedure well and was taken to the recovery room. MD JEANNA COOPER/zach /[id number] d: 08/29/16 1758 t: 08/31/16 1415, OPERATIVE SUMMARY
--- NOTE | ~2016-08-24 | HP ---
PATIENT'S NAME: ALBERT ISAAC AGE: 81 Y [address] ROOM: [facility] [place] [place], [place] [address] LOCATION: [facility] ADMIT DATE: 08/24/2016 History & Physical DISCHARGE DATE: 09/05/2016 FAMILY PHYSICIAN: Physician, Unknown ATTENDING PHYSICIAN: Leon Quintana DATE OF SERVICE: REASON FOR CONSULTATION: Arthritis, left hip and knee. 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 He has had pain and some weakness in his left hip and knee for a couple of years. Pain is in the groin and in the medial knee. He denies any history of surgery, fracture, or injury to his hip or knee. It does cause him to limp, bothers him sometimes at night. He thinks he may have had an injection in the left knee a few years ago, which helped for a while. Feels like his left side may be a little weak but that is most likely related to the pain. Pain does interfere with his sleep. He rates it sometimes 9 or 10, sometimes a 3 or 4. He has a history of nodules in his lungs. He has had a colonoscopy which did not reveal any lesions in the colon, but there was on CT scan a mass. He had a craniotomy by Dr. Mathias several days ago at which time a 3.5-cm adenocarcinoma was removed from his right brain. He has seen some doctors out in [place] regarding his hip and was told that he might some day he need a hip and/or knee replacement. ALLERGIES: NONE TO MEDICATION. MEDICATIONS: On admission, none. MEDICAL PROBLEMS: 1. Cerebral atrophy. 2. History of tobacco use one pack per day for 25 years, abstained since 1976. 3. Atrial fibrillation. 4. Atherosclerotic heart disease. 5. Benign prostatic hypertrophy. 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 7. Atherosclerotic vascular disease. 8. Adrenal nodules. 9. Pulmonary nodules. PATIENT'S NAME: ALBERT ISAAC AGE: 81 Y [address] ROOM: [address] [address] LOCATION: [facility] ADMIT DATE: 08/24/2016 History & Physical DISCHARGE DATE: 09/05/2016 FAMILY PHYSICIAN: Physician, Unknown ATTENDING PHYSICIAN: Leon Quintana 10. Obesity. 11. History of right ankle fracture. 12. Pneumonia. SOCIAL HISTORY: Retired pak. History of distant tobacco use. 1-2 alcoholic beverages per day. Two cups of coffee per day. FAMILY HISTORY: Mother may have of bowel cancer at the age of 90. SURGICAL HISTORY: Colonoscopy. REVIEW OF SYSTEMS: No recent blackout spells, dizziness, or blurred vision. No nausea. He has had hematochezia, occasional constipation, and diarrhea. No incontinence. No chest pain or shortness of breath. Occasional palpitations. Memory is less than it was. No hallucinations. No visual changes or auditory changes. He has gained weight. PHYSICAL EXAMINATION: GENERAL: Obese male. VITAL SIGNS: Pulse 84, blood pressure 170/75, respirations 18, temperature 98, and O2 saturations 97% on room air. BMI is 30.7. HEENT: He has a partially shaved head, has had a right frontal craniotomy with a clean wound. No adenopathy. Pupils equal, round, and reactive to light. Extraocular movements intact. NECK: Supple. CHEST: Clear to auscultation. HEART: Irregular rhythm. ABDOMEN: Obese, soft, no masses. EXTREMITIES: Pulses intact. Trace ankle edema. Left hip has tenderness in the groin internal rotation 0 degrees, external rotation, 10 degrees, abduction 5 degrees, extension 0 degrees. Left knee ranges from 0-135 degrees. Drawer and Wang's negative. No collateral laxity. No warmth, redness or effusion. He ambulates with a limp favoring his left lower extremity. Leg lengths equal pelvis level. Spine is nontender. NEUROLOGIC: Sensation and motor function intact upper extremity. Pulses good. Reflexes equal. DIAGNOSTIC DATA: AP and lateral, left hip demonstrate loss of joint space, sclerosis, osteophytes, and cystic changes. Diagnosis, severe degenerative arthritis, left hip. X-rays left knee show loss of joint space, sclerosis, and PATIENT'S NAME: ALBERT ISAAC AGE: 81 Y [address] ROOM: [place] [address] LOCATION: [facility] ADMIT DATE: 08/24/2016 History & Physical DISCHARGE DATE: 09/05/2016 FAMILY PHYSICIAN: Physician, Unknown ATTENDING PHYSICIAN: Leon Quintana osteophytes. Diagnosis, moderately severe degenerative arthritis, left knee. IMPRESSION: 1. Severe degenerative arthritis, left hip. 2. Moderately severe degenerative arthritis, his left knee. 3. 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 4. Possible lung cancer. 5. History of smoking. 6. Possible atrial fibrillation. 7. Cerebral atrophy. 8. Atherosclerotic heart disease. 9. Benign prostatic hypertrophy. 10. Pancreatic atrophy. 11. Obesity. PLAN: Discussed treatment options. I do not think surgery is anything to consider right now considering his other medical issues low on priority. I discussed injecting the hip and/or knee. He says he just does not want to have that done. Weight loss would be of help. He was given exercises. Take Tylenol. Probably stay away from anti-inflammatories, he may cause an ulcer and exacerbate his cardiovascular issues. At some point, injections could be considered. If his overall medical condition improves greatly and his cancer is either cured or brought under good control, one could consider a hip or knee replacement. I discussed the nature of surgical and nonsurgical treatments. I explained the details of each with him and his . He is being transferred to the swing bed in [place]. If he desires further treatment, he can contact me, make arrangements for a visit. MD JESUS LAW/zach /[id number] CC: Tiffany Mathias MD D: [id number] T: [id number] HISTORY & PHYSICAL
--- NOTE | ~2016-08-24 | CON ---
PATIENT'S NAME: ALBERT ISAAC [facility] AGE: 81 Y [address] ROOM: [address] [address] LOCATION: [facility] ADMIT DATE: 08/24/2016 Consultation DISCHARGE DATE: FAMILY PHYSICIAN: PHYSICIAN, UNKNOWN ATTENDING PHYSICIAN: LES MERAZ REFERRING PHYSICIAN: Tiffany Mathias MD HISTORY OF PRESENT ILLNESS: Albert Isaac is a 81-year-old man with adenocarcinoma in the brain. The history of present illness is obtained from Mr. Isaac, who is a fair historian though he underwent a craniotomy 2 days ago; Mrs. Isaac who is a good historian; the patient's neurosurgeon, Dr. Mathias; and review of the records forwarded from [place] and the [facility] record. The patient was in his normal state of health until 1 year ago. Indeed, the patient wonders if his left leg weakness may have developed 2 to 3 years ago. For 1 year the patient's left hip has been sore and he has experienced progressive left leg weakness. It is difficult to ascertain whether he is describing limitation in motion due to left hip pain as weakness, because he has definitely developed left leg weakness more recently, which has been much more pronounced. The patient's left leg weakness did not prompt him to seek medical assistance until recently. The patient also acknowledges that he has had some pruritus ani and hematochezia following bowel movements for a year. In early 07/2016, the patient developed right lower quadrant pain which he described as "sore and crampy." Richer foods precipitated the pain on some occasions. The pain interfered with his sleep and activity and he gauged the severity as 9 on a scale of 10 at worse. The patient had never experienced this before. Pepto-Bismol was no help. The patient noticed severe pain after he ate 2 chili dogs in the last week and ended up vomiting and experiencing distention. This symptom improved. The patient then developed functional urinary incontinence as he was unable to get to the bathroom before losing bladder control. He has noted this symptom since early August 2006. The patient then developed a stiff neck. He presented to the clinic in [place]. He does not remember who he saw. He does know that steroids were prescribed, physical therapy was recommended, and a colonoscopy was scheduled. The patient recalls he had a Hemoccult positive stool. The patient continued to experience healthcare difficulties and finally on 08/24/2016 his persuaded him to present to the emergency room in [place], [place]. At [place], he was seen by Kristen Griffith PA-C. An EKG revealed atrial fibrillation and a possible old anterior septal infarct. The patient's main complaint in the emergency room was left leg weakness. A CAT scan of lumbar spine revealed severe osteoarthritis in the lumbar spine with no evidence of acute bony abnormality. There was multilevel disc space narrowing with vacuum disc phenomena. There was suspected severe canal stenosis at L2-L3 and moderate canal stenosis at L3-L4, and [id number] canal stenosis at L4- PATIENT'S NAME: ALBERT ISAAC [facility] AGE: 81 Y [address] ROOM: [id number] [place], [place] [address] LOCATION: [facility] ADMIT DATE: 08/24/2016 Consultation DISCHARGE DATE: FAMILY PHYSICIAN: PHYSICIAN, UNKNOWN ATTENDING PHYSICIAN: LES MERAZ. The soft tissues were unremarkable. A two view of the left hip revealed end-stage osteoarthritis. The CK and troponin levels were normal. The general chemical profile was unremarkable except for a slightly low albumin of 3.4 g/dL[place] [address], the hemoglobin was 14.7 g/dL, the MCV 93, and the platelets were 297,000. A CAT scan of the head was obtained and revealed a 3.1 cm mass in the right frontal lobe of the brain with vasogenic edema. The patient was transferred to Dr. Meraz's hospitalist service. Dr. Meraz consulted Dr. Mathias. The workup at [facility] on 08/25/2016 revealed the urinalysis was unremarkable. The procalcitonin was normal. The white count was 17,800, the hemoglobin was 13.6, the MCV was 93, and the platelets were 292,000. The patient had 92% neutrophils and 5% lymphocytes (at the time this assay was obtained, the patient was on dexamethasone). The general chemical profile was not repeated at [facility] but the albumin has fallen to 2.8 g/dL. The hemoglobin A1c was 6.6%. A MRI of the brain confirmed the presence of a 3.5 cm mass with irregular margins at the right frontal lobe. There was heterogeneous enhancement of the mass on postcontrast imaging with enhancement predominantly at the periphery. The mass was centered at the periventricular white matter in the right frontal lobe. There was local mass effect with effacement of sulci in the right frontal lobe. There was extensive vasogenic edema, decreased T1 and increased T2 signal in the white matter at the anterior aspect of the right cerebral hemisphere. The frontal horn of the right lateral ventricle was effaced and there was slight midline shift toward the left in the frontal region. No other enhancing masses were identified. There were mild generalized atrophic changes with prominence of the sulci and CSF spaces. A CAT scan of the chest revealed numerous noncalcified pulmonary nodules in both lungs. The largest measured 4.3 cm in the posterior mid right chest. A CAT scan of the abdomen and pelvis revealed small bilateral adrenal nodules. There was an apple-core lesion in the right colon just proximal to the hepatic flexure, which was nonobstructive. Prominent fluid distended the colon proximally and distal to the lesion. This was consistent with a recent colon prep. There was moderate aortoiliac atherosclerosis. There was severe end-stage osteoarthritis in the left hip. A preoperative echocardiogram revealed mild aortic sclerosis and moderate pulmonary hypertension and severe biatrial enlargement with a normal left ventricular ejection fraction of 60% to 65%. Dr. Mathias recommended and then performed, on 08/29/2016 a right frontal craniotomy and total excision of tumor microsurgically with microscope. He performed a duraplasty. Dr. Mathias applied the Kevin head clamp. He used the [employer] neuronavigational system to assist in total excision of the tumor. PATIENT'S NAME: ALBERT ISAAC [facility] AGE: 81 Y [address] ROOM: [id number] [place], [place] [address] [facility] ADMIT DATE: 08/24/2016 Consultation DISCHARGE DATE: FAMILY PHYSICIAN: PHYSICIAN, UNKNOWN ATTENDING PHYSICIAN: LES MERAZ The frozen section revealed adenocarcinoma (voice report from Dr. Mathias). A colonoscopy has been scheduled. Mr. Isaac had not seen a physician in a long time. He has no history of documented cancer prior to this hospitalization. The patient smoked 1 pack per day of cigarettes for 20-25 years, but has abstained for 40 years. ACTIVE MEDICAL PROBLEMS (CHRONIC AND DIAGNOSED): 1. Osteoarthritis at least in the left hip, lumbar spine, left knee and bilateral shoulders. 2. Cerebral atrophy on MRI scan. 3. Tobacco use, 1 pack per day for 20-25 years, but has abstained since 1976. 4. Atrial fibrillation, duration unknown. The patient has not seen a doctor and does not report any palpitations. 5. ?Atherosclerotic heart disease?-the EKG reveals no R-waves in the V1-V3 leads. 6. ?Benign prostatic hypertrophy? This is a clinical diagnosis. The prostate was smooth and 25-30 g when the patient was seen by Dr. Underwood on 08/26/2016. 7. Pancreatic atrophy, noted on CAT scan. 8. Atherosclerotic vascular disease with aortoiliac atherosclerosis noted on CAT scan. 9. Small bilateral adrenal nodules, uncharacterized. 10. Severe biatrial enlargement, moderate pulmonary hypertension and moderate aortic sclerosis noted on echocardiogram in 2017. 11. Perennial rhinitis. 12. Class I obesity. BMI 30.7 kg/m2. ACUTE MEDICAL ILLNESSES (RESOLVED), PAST SURGERIES AND INJURIES: 1. In 1956, pneumonia. 2. In 2006, right ankle fracture, treated with fusion. MEDICATIONS UPON ADMISSION: 1. The patient was on no outside medications. 2. The patient was on dexamethasone following his encounter in the [place] [facility]. ADVERSE REACTIONS TO MEDICATIONS, TRANSFUSIONS, ALLERGIES: None. TOBACCO: 1 pack per day for 22-25 years, abstained since 1976. ALCOHOL: PATIENT'S NAME: ALBERT ISAAC [facility] AGE: 81 Y [address] ROOM: [place] [address] [facility] ADMIT DATE: 08/24/2016 Consultation DISCHARGE DATE: FAMILY PHYSICIAN: PHYSICIAN, UNKNOWN ATTENDING PHYSICIAN: LES MERAZ 1-2 alcoholic beverages a day, a mixed drink, wine or beer. The patient may have drank more heavily, but he is reticent and will not quantify how much and over what period of time he drank or even if his past alcohol use led to health problems or social problems. CAFFEINE: 2 cups of coffee per day. IMMUNIZATIONS: Negative flu, negative Pneumovax, negative tetanus in the last 10 years, negative varicella zoster virus. FAMILY HISTORY: The patient's mother may have of bowel cancer around age 90. SOCIAL HISTORY: The patient was born and raised an [place]. He has been a rancher for many years. He was in the [employer] for 10 to 15 years. The patient has been for 11 years. This is his first marriage and he has no children. His grew up in [place] in the [place] the [facility]. On occasion, the patient will go to the [facility]. 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 REVIEW OF SYMPTOMS: 1. The patient's appetite is unchanged, but he acknowledges that his bowel movements have been more frequent. Sometimes the BMs are hard and sometimes they are soft. He has had no incontinence. 2. As he thinks about it, he may have had some irregular palpitations for 2 months. PHYSICAL EXAMINATION: VITAL SIGNS: Pulse is 84 and regular, blood pressure 170/75, respiratory rate 18, temperature 98.2, SPO2 97% on room air, height 69 inches, weight 208 pounds, BMI 30.7 kg/M2. GENERAL: Well-developed, obese, 81-year-old male, in no acute distress. HEENT: Status post right frontal craniotomy. The patient currently has bandages over his wound, acne rosacea, facial telangiectasia, otherwise unremarkable. LYMPH NODES: Not palpable. NECK: Without JVD or carotid bruits. SKIN: Park angiomas. CHEST: Clear anteriorly. CV: Irregularly irregular rhythm with no murmurs, bruits or adventitious sounds. PATIENT'S NAME: ALBERT ISAAC [facility] AGE: 81 Y [address] ROOM: [place] [address] [facility] ADMIT DATE: 08/24/2016 Consultation DISCHARGE DATE: FAMILY PHYSICIAN: PHYSICIAN, UNKNOWN ATTENDING PHYSICIAN: LES MERAZ ABDOMEN: No masses, tenderness, or organomegaly. GENITALIA AND RECTAL: Not examined. EXTREMITIES: The pulses are 2+ in the upper extremities. The patient has compression devices over the calf. NEURO: The patient is able to walk with a walker and one-person assist. His strength is 5/5 on the right and 4/5 in the left leg. IMPRESSION: 1. A 81-year-old man with a 1 to 3 year history of left hip pain and left leg weakness, a 2-month history of right lower quadrant abdominal pain, history of hematochezia for a year, recent development of loss of bladder control on occasion, vomiting on 1 occasion, stiff neck, more frequent bowel movements, mild anemia, low albumin, a mass just proximal to the hepatic flexure of the colon on CAT scan, multiple pulmonary nodules on CAT scan, and a 3.7 cm adenocarcinoma in the right frontal lobe of the brain with no sign of residual cancer in the brain following surgical removal on postoperative MRI. 2. 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 It is conceivable, given his tobacco history, he has a primary lung cancer that has spread to the lungs and brain with a separate early colon cancer. 3. Risk factors for colon cancer include his age of 81, [place] descent, tobacco use, and class I obesity. 4. We expect this to be a chronic lifelong disease. Cures are exceedingly rare and unexpected. 5. We have to relieve this. 6. Our goals are palliative. 7. There are multiple considerations. a. Immunohistochemical testing to confirm the adenocarcinoma in the brain is compatible with a colon cancer (or not). b. Colonoscopy to determine the degree of obstruction and to confirm the tissue in the colon resembles the cancer in the brain (and is cancer). c. Surgery to removed the cancer in the colon, if it is confirmed to be a cancer and the patient is at risk for obstruction. d. We would have to weigh the pros and cons of surveillance of the brain with MRI scans versus stereotactic radiation therapy to the involved area the brain versus whole brain radiation over 10 to 15 days. e. Chemotherapy and possibly targeted antibody therapy to shrink the cancer in the lung (to thee presumed but not biopsy-proven cancers). f. The patient will have to weigh the pros and cons of best supportive care with Hospice. g. A clinical trial may be a consideration. RECOMMEND: Diagnostic: PATIENT'S NAME: ALBERT ISAAC [facility] AGE: 81 Y [address] ROOM: [place] [address] LOCATION: [facility] ADMIT DATE: 08/24/2016 Consultation DISCHARGE DATE: FAMILY PHYSICIAN: PHYSICIAN, UNKNOWN ATTENDING PHYSICIAN: LES MERAZ 1. Proceed with a colonoscopy and go from there. Treatment: 1. No anti-neoplastic therapy at this point. PATIENT EDUCATION: Discussed the considerations here. MD IKE MCKEON/modl /[id number] CC: MD Kristen Plascencia PA-C Anuradha Tunuguntla, MD Chung Chen, MD Arif A Nawaz, MD d: 09/01/16 1138 t: 09/01/16 1646, CONSULTATION REPORT
[2016-08-25 05:14] LABS: HEMATOCRIT 41.8 % (37.0-53.0); MCH 31.4 pg (27.0-34.0); MCHC 33.5 gm/dL (32.0-36.5); MCV 93.7 fl (83.0-98.0); MPV 9.4 fl (9.4-12.4); RBC 4.46 M/uL (3.50-5.50); RDW-CV 13.2 % (11.9-14.6); WBC 10.5 K/uL (4.0-11.0)
[2016-08-25 05:31] LABS: INR - (THERAPEUTIC) 1.1 (0.9-1.1)
[2016-08-25 05:36] LABS: ALBUMIN 2.9 gm/dL (3.5-5.0); ALK PHOS 73 IU/L (33-138); ALT 19 IU/L (12-78); ANION GAP 14.8 (10.0-19.0); AST 13 IU/L (10-40); BLOOD UREA NITROGEN 15 mg/dL (6-24); CALCIUM 8.5 mg/dL (8.5-10.5); CHLORIDE 106 mMol/L (96-110); CO2 22 mMol/L (22-32); CPK 35 IU/L (35-332); CREATININE 1.1 mg/dL (0.6-1.3); ESTIMATED GFR (MDRD EQUATION) > 60; MAGNESIUM 2.2 mg/dL (1.3-2.6); PHOSPHORUS 2.2 mg/dL (2.5-4.9); POTASSIUM 3.8 mMol/L (3.7-5.1); SODIUM 139 mMol/L (135-145); TOTAL BILIRUBIN 0.3 mg/dL (0.0-1.5); TOTAL PROTEIN 6.3 g/dL (6.0-8.4)
--- NOTE | 2016-08-25 06:59 | NUR ---
Significant Event: FORGETFUL AND REPETITIVE. FOLLOWS COMMANDS, NEEDS CUES WITH SOME ACTIVITIES. SLIGHTLY MORE WEAK ON L), L) FACIAL DROOP. AFIB, HR 60-100'S. SBP UP TO 190'S. HAVE PRN HYLDRALAZINE AND LABETOLOL X1 EACH. SBP 110-130'S AFTER LABETOLOL. C/O SLIGHT PAIN IN L) HIP AND R) FOOT. DID NOT REQUIRE MEDICATION. UP TO COMMODE WITH 2 ASSIST, GAITBELT AND WALKER. BM X2. VOID X2, AND USED URINAL. Follow up: MRI TODAY.
[2016-08-25 11:02] LABS: BILIRUBIN URINE NEGATIVE (NEGATIVE); BLOOD URINE NEGATIVE /UL (NEGATIVE); GLUCOSE URINE 100 mg/dL (NEGATIVE); KETONE URINE 5 mg/dL (NEGATIVE); LEUKOCYTES URINE NEGATIVE /UL (NEGATIVE); NITRITE URINE NEGATIVE (NEGATIVE); PROTEIN URINE NEGATIVE (NEGATIVE); SPEC GRAVITY URINE 1.025 (1.003-1.035); UROBILINOGEN URINE NORMAL (NORMAL)
[2016-08-25 11:13] LABS: COLOR URINE YELLOW (YELLOW); TURBIDITY URINE CLEAR (CLEAR)
--- NOTE | 2016-08-25 13:42 | NUR ---
Significant Event:A/O X 2, Forgetful about time. Refuses to answer if he doesn't know. L) facial droop, L) arm drift and weakness. Speech is slow and repetitive. No Babinski. Afib. Generalized edema all over. Labetolol for SBP > 150 early this AM. MRI with and without contrast this AM. ECHO completed. CT of chest with contrast today. Consult for [place] regarding possible lesions in lung. O2 Remains > 90% on RA. Tolerating PO fluids and regular diet. Voiding without problems, but patient report frequency. Consult for Dr Ndiaye. Chronic N/T in R) foot at times. HX of Ankle replacment and patient walks on the side of the right foot, leaving a callus and redness. is updated, requests reports and disks. Follow up:Medical release, bed / chair alarm. Craniotomy on Sunday.
--- NOTE | 2016-08-26 03:51 | NUR ---
SIGNIFICANT EVENT: NO NEUROLOGICAL CHANGES THROUGHOUT SHIFT. PATIENT IS SLIGHTLY CONFUSED AT TIMES AND CAN BE REPETITIVE. REMAINS ORIENTED. BLADDER SCANS COMPLETED X3 TO ASSESS POST VOID RESIDUALS, AMOUNTS PLACED IN PROGRESS NOTES. VSS ON RA. FOLLOW UP:
[2016-08-26 04:12] LABS: BASOPHIL % 0.1 %; HEMATOCRIT 41.1 % (37.0-53.0); HEMOGLOBIN 13.6 g/dL (11.0-16.0); IMMATURE GRANULOCYTE # 0.1 K/uL (0.0-0.3); IMMATURE GRANULOCYTE % 0.6 %; LYMPHOCYTE # 0.9 K/uL (0.8-4.0); MCH 30.9 pg (27.0-34.0); MCHC 33.1 gm/dL (32.0-36.5); MCV 93.4 fl (83.0-98.0); MONOCYTE # 0.4 K/uL (0.0-1.0); MONOCYTE % 2.1 %; MPV 9.5 fl (9.4-12.4); NEUTROPHIL # (ANC) 16.4 K/uL (1.4-9.0); NEUTROPHIL % 92.2 %; NRBC % 0 /100WBC (0-0.00); PLATELET COUNT 292 K/uL (150-450); RDW-CV 13.6 % (11.9-14.6)
[2016-08-26 04:20] LABS: WBC 17.8 K/uL (4.0-11.0)
[2016-08-26 04:31] LABS: ANION GAP 13.2 (10.0-19.0); BLOOD UREA NITROGEN 15 mg/dL (6-24); CALCIUM 8.5 mg/dL (8.5-10.5); CHLORIDE 106 mMol/L (96-110); CO2 26 mMol/L (22-32); CREATININE 0.8 mg/dL (0.6-1.3); ESTIMATED GFR (MDRD EQUATION) > 60; PHOSPHORUS 3.2 mg/dL (2.5-4.9); POTASSIUM 4.2 mMol/L (3.7-5.1); SODIUM 141 mMol/L (135-145)
--- NOTE | 2016-08-26 15:23 | NUR ---
Significant Events: Patient oriented x3, forgetful at times. Very talkative and makes very random statements. Remains in Afib with SBP stable. 1+ edema to BLE. Remains on room air with lungs clear throughout. Up to bathroom with 1 assist to void. Did have a very small loose BM. Appetite good. Ambulates in hallway with 1 assist & walker. Follow up: Transfer to NTU when able
--- NOTE | 2016-08-27 03:36 | NUR ---
Significant Event: Pt a/o x3. Forgetful. Has become impulsive as the night has went on. Urinary Frequency, Incontinence. RA. Hypertension. Hydralazine given x1. Trace edema. Afib, controlled rates. Follow up: CT guided Lung biopsy on Sunday Crani on Sunday
[2016-08-27 05:16] LABS: BASOPHIL % 0.1 %; HEMATOCRIT 43.5 % (37.0-53.0); HEMOGLOBIN 14.4 g/dL (11.0-16.0); IMMATURE GRANULOCYTE # 0.1 K/uL (0.0-0.3); IMMATURE GRANULOCYTE % 0.7 %; LYMPHOCYTE # 0.5 K/uL (0.8-4.0); LYMPHOCYTE % 2.9 %; MCH 30.9 pg (27.0-34.0); MCHC 33.1 gm/dL (32.0-36.5); MCV 93.3 fl (83.0-98.0); MONOCYTE # 0.5 K/uL (0.0-1.0); MPV 9.5 fl (9.4-12.4); NEUTROPHIL # (ANC) 16.6 K/uL (1.4-9.0); NEUTROPHIL % 93.3 %; NRBC % 0 /100WBC (0-0.00); PLATELET COUNT 291 K/uL (150-450); RBC 4.66 M/uL (3.50-5.50); RDW-CV 13.9 % (11.9-14.6)
[2016-08-27 05:17] LABS: WBC 17.8 K/uL (4.0-11.0)
[2016-08-27 05:28] LABS: ALBUMIN 3.1 gm/dL (3.5-5.0); ANION GAP 14.3 (10.0-19.0); BLOOD UREA NITROGEN 19 mg/dL (6-24); CALCIUM 8.7 mg/dL (8.5-10.5); CHLORIDE 104 mMol/L (96-110); CO2 24 mMol/L (22-32); CREATININE 0.7 mg/dL (0.6-1.3); ESTIMATED GFR (MDRD EQUATION) > 60; PHOSPHORUS 2.5 mg/dL (2.5-4.9); POTASSIUM 4.3 mMol/L (3.7-5.1); SODIUM 138 mMol/L (135-145)
--- NOTE | 2016-08-27 13:40 | NUR ---
Significant Event: PT ALERT AND ORIENTED X3; FORGETFUL. VERY TALKATIVE AND CONVERSATION CAN BE VERY RANDOM. PERRLA. MOVES ALL EXTREMITIES. L)LEG IS WEAKER THAN R)LEG. L)UPPER EXTREMITY IS SLIGHTLY WEAKER THAN R)UPPER EXTREMITY. PT IS VERY IMPULSIVE AT TIMES. ALARMS ON AT ALL TIMES. AMBULATES WITH 1-ASSIST/GAIT BELT/WALKER. VOIDS PER URINAL/TOILET. INCONTINENT AT TIMES-WEARS PULL-UP DEPENDS. REMAINS IN A-FIB WITH CONTROLLED RATES. GENERALIZED EDEMA. TO KEEP SBP <150; PRN HYDRALAZINE GIVEN THIS SHIFT. IV LASIX GIVEN X1. Q6H ACCUCHECKS WITH MODERATE SLIDING SCALE DUE TO PT BEING ON DECADRON. IV TO L)WRIST SALINE LOCKED. FAMILY HAS BEEN AT BEDSIDE. Follow up: CT LUNG GUIDED BIOPSY TOMORROW; PLAN FOR SURGERY ON SUNDAY PER .
--- NOTE | 2016-08-28 04:04 | NUR ---
Significant Event: Patient alert/oriented. Talkative, will repeat himself. Forgetful. Perrla. Denies N/T this shift. Moves all extremities spontaneously and to command. Left extremities weaker than right. Slightly drags left foot while ambulating, needs cueing. Left sided facial droop. Afib. Lungs clear on room air. Regular diet. Transfers 1 assist GB/walker. PIV to left wrist saline locked. Incontinent at times, will void in bathroom and urinal as well. Q6 accuchecks. at bedside. Follow up: CT of lung with biopsy today invasive radiology will do. Sunday crani.
[2016-08-28 04:06] LABS: BASOPHIL % 0.1 %; HEMATOCRIT 41.2 % (37.0-53.0); HEMOGLOBIN 13.8 g/dL (11.0-16.0); IMMATURE GRANULOCYTE # 0.1 K/uL (0.0-0.3); IMMATURE GRANULOCYTE % 0.5 %; LYMPHOCYTE # 0.6 K/uL (0.8-4.0); LYMPHOCYTE % 4.7 %; MCH 30.9 pg (27.0-34.0); MCHC 33.5 gm/dL (32.0-36.5); MCV 92.4 fl (83.0-98.0); MONOCYTE # 0.4 K/uL (0.0-1.0); MONOCYTE % 2.6 %; MPV 9.4 fl (9.4-12.4); NEUTROPHIL # (ANC) 12.4 K/uL (1.4-9.0); NEUTROPHIL % 92.1 %; NRBC % 0 /100WBC (0-0.00); PLATELET COUNT 282 K/uL (150-450); RBC 4.46 M/uL (3.50-5.50); RDW-CV 13.9 % (11.9-14.6); WBC 13.5 K/uL (4.0-11.0)
[2016-08-28 04:23] LABS: ALBUMIN 2.9 gm/dL (3.5-5.0); ANION GAP 15.2 (10.0-19.0); BLOOD UREA NITROGEN 26 mg/dL (6-24); CALCIUM 8.5 mg/dL (8.5-10.5); CHLORIDE 103 mMol/L (96-110); CO2 24 mMol/L (22-32); CREATININE 0.9 mg/dL (0.6-1.3); ESTIMATED GFR (MDRD EQUATION) > 60; PHOSPHORUS 2.7 mg/dL (2.5-4.9); POTASSIUM 4.2 mMol/L (3.7-5.1); SODIUM 138 mMol/L (135-145)
[2016-08-28 11:44] LABS: INR - (THERAPEUTIC) 1.1 (0.9-1.1)
--- NOTE | 2016-08-28 11:47 | NUR ---
Reviewed Pablito's chart earlier this morning and talked with nursing. They tell me that he is planning on having a crani on Sunday and then will transfer to ICU after that. In reviewing his chart, it appears that he lives at home in [place], [place] with his . I did try to go in and talk with Pablito and his , but Dr. Durham was in there so I will attempt to see him later today or tomorrow after surgery and explain CM role and help them with eventual dismissal plans. Will contiue to follow and assist.
--- NOTE | 2016-08-28 18:21 | NUR ---
Significant Event: PT alert, VSS, on room air. PT denies pain, N&T. CT biopsy of lung canceled today. PT had MRI this shift. NPO after midnight for crani on 08/29. PT ambulates with walker, gait belt and 1-2 assist, drags L)leg at times. IV patent to L)wrist and Power glide placed to R)upper arm. Impulsive at times, alarm on at all times. Follow up:
--- NOTE | 2016-08-29 02:24 | NUR ---
Significant Event: The Patient is Alert and Oriented x3. Forgetful at times. Denies numbness and Tingling. Moves all extremities spontaneously and to command. Moderate strength. Up with 1 Assist, Gaitbelt and walker. Denies Pain. VSS. On room air. PIV to the Left Forearm and Right Upper arm Saline locked. NPO since midnight for surgery today, post surgery the patient will go to the ICU. Accu checks Q6H. On Decadron IV. A-FIB. Follow up: Crani Today
[2016-08-29 04:00] LABS: BASOPHIL % 0.1 %; HEMATOCRIT 41.6 % (37.0-53.0); HEMOGLOBIN 13.7 g/dL (11.0-16.0); IMMATURE GRANULOCYTE # 0.1 K/uL (0.0-0.3); IMMATURE GRANULOCYTE % 0.5 %; LYMPHOCYTE # 0.5 K/uL (0.8-4.0); MCH 30.7 pg (27.0-34.0); MCHC 32.9 gm/dL (32.0-36.5); MCV 93.3 fl (83.0-98.0); MONOCYTE # 0.4 K/uL (0.0-1.0); MONOCYTE % 2.7 %; MPV 9.6 fl (9.4-12.4); NEUTROPHIL # (ANC) 12.1 K/uL (1.4-9.0); NEUTROPHIL % 92.7 %; NRBC % 0 /100WBC (0-0.00); PLATELET COUNT 269 K/uL (150-450); RBC 4.46 M/uL (3.50-5.50); RDW-CV 13.6 % (11.9-14.6)
[2016-08-29 04:18] LABS: ANION GAP 16.2 (10.0-19.0); BLOOD UREA NITROGEN 25 mg/dL (6-24); CALCIUM 8.3 mg/dL (8.5-10.5); CHLORIDE 106 mMol/L (96-110); CO2 22 mMol/L (22-32); CREATININE 0.7 mg/dL (0.6-1.3); ESTIMATED GFR (MDRD EQUATION) > 60; POTASSIUM 4.2 mMol/L (3.7-5.1); SODIUM 140 mMol/L (135-145)
--- NOTE | 2016-08-29 08:56 | NUR ---
A - PT SCREENED D/T LOS. LABS: GLU 127, BUN/METAL MIXER 25/0.7, WBC 13.0. PERTINENT MEDS: PEPCID, SLIDING SCALE INSULIN, DECADRON, ZOFRAN. EST NEEDS: [id number] KCALS, 110-128 GM PROTEIN, 1 ML/KCAL FLUIDS. PT IS NPO FOR CRANI; INTAKE PRIOR TO NPO TYPICALLY 75-100%. D - PT AT RISK W/ ANTICIPATED INADEQUATE ORAL INTAKE S/P CRANI. PT WILL TRANSER TO ICU POST-OP. I - GOAL: 50-75% INTAKE BY DISMISSAL. M/E - WILL MONITOR POST-OP AND PROVIDE INTERVENTION NEEDED.
--- NOTE | 2016-08-29 15:21 | NUR ---
Significant Event: Patient to floor from PACU at 1315. Alert and speaking with family, disoriented to time and place. Strength slightly weaker on left arm and left leg. Pupils equal 2 at brisk. Gauze dressing on right top of head, scant shadow drainage. Patients no pain. Chirinos patent, urine color dark yellow. Trace edema in left hand and leg. Midline IV to right upper arm, patent with fluids infusing. Repositioned side to side, tolerating clear liquids. Family at bedside. Follow up:
--- NOTE | 2016-08-30 03:53 | NUR ---
Significant Event: Patient a/ox3. Makes some confused comments. Follows commands. Denies n/t. A fib. Rates 50-80s with a few episodes in 40s. VSS. Lungs clear and dim. RA. Bowel sounds active. No BM. Chirinos drained 1290 ml urine. Clear liquid diet. Tolerating well. No new drainage on head dressing. 650 mg tylenol at 0320 for headache, resolved. 2A with gaitbelt/walker, requires prompting. Follow up: Change status
[2016-08-30 05:34] LABS: HEMATOCRIT 42.2 % (37.0-53.0); HEMOGLOBIN 13.8 g/dL (11.0-16.0); MCH 31.1 pg (27.0-34.0); MCHC 32.7 gm/dL (32.0-36.5); MPV 9.8 fl (9.4-12.4); PLATELET COUNT 267 K/uL (150-450); RBC 4.44 M/uL (3.50-5.50); RDW-CV 13.9 % (11.9-14.6); WBC 17.6 K/uL (4.0-11.0)
[2016-08-30 05:46] LABS: ALBUMIN 2.8 gm/dL (3.5-5.0); ANION GAP 12.3 (10.0-19.0); BLOOD UREA NITROGEN 18 mg/dL (6-24); CALCIUM 8.1 mg/dL (8.5-10.5); CHLORIDE 105 mMol/L (96-110); CO2 25 mMol/L (22-32); CREATININE 0.7 mg/dL (0.6-1.3); ESTIMATED GFR (MDRD EQUATION) > 60; PHOSPHORUS 2.7 mg/dL (2.5-4.9); POTASSIUM 4.3 mMol/L (3.7-5.1); SODIUM 138 mMol/L (135-145)
[2016-08-30 06:07] LABS: ABSOLUTE NEUTROPHIL CT (ANC) 16.4 K/uL (1.4-9.0); LYMPHOCYTE # 0.2 K/uL (0.8-4.0); LYMPHOCYTE % 1 %; MONOCYTE # 1.1 K/uL (0.0-1.0); SEGMENTED NEUTROPHIL # 16.4 K/uL (1.4-9.0); SEGMENTED NEUTROPHIL % 93 %
--- NOTE | 2016-08-30 10:53 | NUR ---
NOTED PT'S CLEAR LIQUID DIET ORDER; ENSURE CLEAR TID STARTED TO PROVIDE ADDITIONAL NUTRIENTS WHILE PT IS ON CLEAR LIQUID DIET.
--- NOTE | 2016-08-30 14:58 | NUR ---
Significant Event:TOOK OVER CARES AT 1315. PT IS AAOX3. BUT FORGETFUL. MAKES STATEMENTS THAT DO NOT ALWAYS MAKE SENSE. FOLLOWS COMMANDS. NO C/O NUMBNESS OR TINGLING. NO HEADACHE. LEFT LEG IS SLIGHTLY WEAKER. AFIB. GOAL TO KEEP SBP LESS THAN 160. ON RA ACTIVE BS. NOAH TO BE DC THIS SHIFT. INCISION TO RIGHT SIDE OF HEAD COVERED WITH DRSG. REDNESS NOTED TO COCCYX AND RIGHT FOOT. IV RUNNING. AT BEDSIDE. NO BM THIS SHIFT. HAS BEEN GIVING PT'S OWN FIBER SUPPLEMENT Follow up:MONITOR BP
[2016-08-31 05:58] LABS: ANION GAP 13.7 (10.0-19.0); BLOOD UREA NITROGEN 17 mg/dL (6-24); CALCIUM 8.2 mg/dL (8.5-10.5); CHLORIDE 105 mMol/L (96-110); CO2 26 mMol/L (22-32); CREATININE 0.7 mg/dL (0.6-1.3); ESTIMATED GFR (MDRD EQUATION) > 60; MAGNESIUM 2.3 mg/dL (1.3-2.6); POTASSIUM 3.7 mMol/L (3.7-5.1); SODIUM 141 mMol/L (135-145)
--- NOTE | 2016-08-31 07:03 | NUR ---
Significant Event: FOLLOWS COMMANDS, EQUAL STRENGTH UPPER EXTREMITIES. LEFT LOWER EXTREMITY WEAKER THAN RIGHT. DENIES NUMBNESS/TINGLING. HEADACHE AT BEGINNING OF SHIFT, PRN TYLENOL AND HYDRALAZINE GIVEN. CONTINUES IN AFIB, TACHYCARDIC WITH ABDOMINAL DISCOMFORT FROM BOWEL PREP. PRN HYDRALAZINE GIVEN X2 FOR HTN >170. AFEBRILE. CONTINUES ON ROOM AIR. ZAMORA DISCONTINUED ON DAY SHIFT. FREQUENT REQUESTS TO URINATE PER URINAL WITH MINIMAL RESULT, BLADDER SCAN AND STRAIGTH CATH FOR 400ML URINE. BOWEL PREP WITH SUPREP WITH NO RESULT. FLEETS ENEMA GIVEN NO RESULTS. NGT PLACED TO LOW CONTINUOUS SUCTION , ABDOMINAL XRAY AND ATTEMPT TO PLACE FLEXISEAL. UNABLE TO PLACE DUE TO HARD STOOL. PIV X1, MIDLINE TO RIGHT UPPER ARM WITH NS AT 100ML/HR. Follow up: COLONOSCOPY??
--- NOTE | 2016-08-31 10:28 | NUR ---
A - PT S/P CRANI. PT W/ LUNG AND COLON MASSES. GLU 161, BUN/TEACHERS AIDE 17/0.7, WBC 17.6. PT W/ 1-3+ EDEMA TO BUE, BLE. ATTEMPTING TO PREP FOR COLONOSCOPY. PT IS NPO. GOOD INTAKE PRIOR TO CRANI. D - AT RISK W/ INADEQUATE ORAL INTAKE R/T NPO STATUS FOR COLON. I - GOAL: 50-75% OR BETTER INTAKE WHEN DIET RESUMES. M/E - 1) WILL OFFER SUPPLEMENT WHEN DIET RESUMES. 2) F/U IN 2-4 DAYS.
--- NOTE | 2016-08-31 11:37 | NUR ---
Introduced self and CM role to Pablito's , Mindy who was at bedside. I let her know that I would be following along with Pablito's case and would help with eventual dismissal plans. I let her know at this time, it was to soon to tell what level of care he was going to need when he was ready to dismiss from here. I talked with her about home with HHC, home with HHC and caregivers, SWB and SNF options. She is very against him going to a SNF at this time. She tells me she will be taking him home no matter what. She is having her zoroastrianism family help build a ramp into his house. She states she will need other DME for him as well but right now I am not for sure what all he needs so I let her know I would visit with therapies and then we would get her scripts to what DME items he might need. 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 Let her know that we would try to help as best as we can and offer support in anyway we could. She is interested in him getting a lift chair at home for him as well. I let her know we would see what doctors and therapy thought about this and then I would help her with obtaining one or finding some place to obtain one after that. She is fine with this. She tells me she is staying in the room with him at this time and has no plans of going back home until he is able to come back home with her. No other questions, needs or concerns. Will continue to follow and assist.
--- NOTE | 2016-08-31 17:02 | NUR ---
Significant Event: Patient alert/oriented currently x3. Finally got some sleep after not getting any for 3 consecutive days. Patient had a fall this shift. Patient is ultra high risk for falls. High low bed was in place as well. Patient has been in a-fib HR 70-90's mostly throughout the shift. Does have edema 1-2+. RA with good saturations. Did have several enemas this shift. Patient received a suprep last night with no results. Distended abdomen and hyperactive bowels. Did have a digitally stimulated removal this shift. No complaints of pain/discomfort. Voids per urinal. Turned every 2 hours. 15 mins checks were completed throughout the shift. Follow up:
--- NOTE | 2016-08-31 19:04 | NUR ---
Significant Event: FROM ICU AT 1745. VITALS TAKEN. A/O X 3. PASSED CARES TO NIGHT NURSE, NO CHANGE FROM ICU NURSE. Follow up:
--- NOTE | 2016-09-01 02:42 | NUR ---
Significant Event:Patient alert and ox3. forgetful easily. repatitive with statments. Up with 1-2 assist/gb/walker. No c/o pain, no BARRAZA. Moves all limbs spontaneously. Dressing to head intact with no drainage noted. Has been having red colored stools, was given suprep and enema on previous shift. Refused this am's tap water enema. IV x 2, midline to rt arm and piv to left forearm/wrist. Follow up:Possible colonoscopy soon.
[2016-09-01 05:13] LABS: BASOPHIL % 0.1 %; HEMATOCRIT 41.4 % (37.0-53.0); HEMOGLOBIN 13.8 g/dL (11.0-16.0); IMMATURE GRANULOCYTE # 0.2 K/uL (0.0-0.3); IMMATURE GRANULOCYTE % 0.8 %; LYMPHOCYTE # 0.9 K/uL (0.8-4.0); LYMPHOCYTE % 3.9 %; MCH 31.2 pg (27.0-34.0); MCHC 33.3 gm/dL (32.0-36.5); MCV 93.7 fl (83.0-98.0); MONOCYTE # 1.5 K/uL (0.0-1.0); MONOCYTE % 6.7 %; MPV 9.9 fl (9.4-12.4); NEUTROPHIL # (ANC) 20.2 K/uL (1.4-9.0); NEUTROPHIL % 88.5 %; NRBC % 0 /100WBC (0-0.00); RBC 4.42 M/uL (3.50-5.50); RDW-CV 13.6 % (11.9-14.6)
[2016-09-01 05:27] LABS: ANION GAP 12.1 (10.0-19.0); BLOOD UREA NITROGEN 13 mg/dL (6-24); CALCIUM 7.7 mg/dL (8.5-10.5); CHLORIDE 102 mMol/L (96-110); CO2 27 mMol/L (22-32); CREATININE 0.6 mg/dL (0.6-1.3); ESTIMATED GFR (MDRD EQUATION) > 60; POTASSIUM 3.1 mMol/L (3.7-5.1); SODIUM 138 mMol/L (135-145)
[2016-09-01 05:32] LABS: PLATELET COUNT 212 K/uL (150-450); WBC 22.8 K/uL (4.0-11.0)
--- NOTE | 2016-09-01 13:43 | NUR ---
Significant Event: VSS. DID RUN SLIGHTLY HTN THIS AM BUT BETTER WITH BP MEDS. PATIENT A/O X 3, FORGETFUL AND SLOW TO RESPOND. DENIES NUMBNESS/TINGLING TODAY, BUT WAS TOLD HE HAD CHRONIC N/T IN HANDS AND FEET NORMALLY. MODERATE STRENGTH, SLIGHTLY WEAKER WITH DORSIFLEXION OF LEFT LEG. 2+EDEMA IN LOWER EXTREMITIES. LOOSE STOOLS TO MUSHY TODAY, BLOOD TINGED. DR ADAMES AWARE. PLAN FOR COLONOSCOPY IN THE AM. IV IN LEFT FOREARM AND RT UPPER ARM. DENIES PAIN THIS SHIFT. DRESSING TO HEAD DRY AND INTACT. UP WITH 2 ASSIST AND WALKER. ACCUCHECKS Q 6HRS. Follow up: NEURO STATUS. COLONOSCOPY IN AM, NPO.
--- NOTE | 2016-09-01 15:03 | NUR ---
Social visit with Pablito's and her friend who was at bedside. Gave a list of DME companies and their addresess so she could get DME when he was dismissed if needed. Also gave her a list of private caregivers that she could contact to talk with them about coming to help her out when he was ready to go home. I talked with and friend in detail about the different options when it came to discharge. (Home HHC & Cargivers vs SWB vs SNF) After much talking, did finally tell me that it would be fine to check into SWB options. [facility] choice would be [facility] and then her next chioce would be [facility]. I let her know that I would contact them to see if they would possibly be able to take upon dismissal before he goes home. Encouraged her to call the private caregivers now so she could just get a feel for the prices as well as tell them what she might be looking for as sometimes that takes a while to get people lined up. She also asked me to help Dr. Mathias write a letter that she could send to the [facility] in order for her sister to come over to help her care for Pablito when he goes home. I let her know that I would write a letter and then have Dr. Mathias sign it, but that I couldn't promise that this would work to get her over here. voiced understanding to this. I let her know I would try to get that letter done today or first thing on Sunday and get it to her. AFter my visit with , I did call over to [facility], talked with Anh on SWB unit. She states they may have a bed open next week for him and ask that we fax over a referral to them. Referral was faxed to Anh at [phone]. I let her know that Pablito wasn't seen by a PCP there and didn't have one to my knowledge, but his was open to whatever doctor would be there that would accept him. I also phoned over to [facility]. Talked with Desi. She states that they might have an opening for him. She asks that we fax over a referral to them and she will take a look at it and then get back to me. Faxed over to Desi at [phone], she says she will try to look at it today and then connect with me later or first thing on Sunday. Updated Ale Salazar that I had referrals to [facility] faxed out. Will continue to follow and assist.
[2016-09-02 06:02] LABS: HEMATOCRIT 38.8 % (37.0-53.0); MCH 31.3 pg (27.0-34.0); MCHC 33.5 gm/dL (32.0-36.5); MCV 93.5 fl (83.0-98.0); RBC 4.15 M/uL (3.50-5.50); RDW-CV 13.6 % (11.9-14.6)
[2016-09-02 06:03] LABS: PLATELET COUNT 169 K/uL (150-450); WBC 27.3 K/uL (4.0-11.0)
[2016-09-02 06:13] LABS: ALBUMIN 2.4 gm/dL (3.5-5.0); ANION GAP 12.4 (10.0-19.0); BLOOD UREA NITROGEN 14 mg/dL (6-24); CALCIUM 7.7 mg/dL (8.5-10.5); CHLORIDE 103 mMol/L (96-110); CO2 28 mMol/L (22-32); CREATININE 0.6 mg/dL (0.6-1.3); ESTIMATED GFR (MDRD EQUATION) > 60; POTASSIUM 3.4 mMol/L (3.7-5.1); SODIUM 140 mMol/L (135-145)
[2016-09-02 06:17] LABS: PHOSPHORUS 1.4 mg/dL (2.5-4.9)
[2016-09-02 06:59] LABS: ABSOLUTE NEUTROPHIL CT (ANC) 24.3 K/uL (1.4-9.0); LYMPHOCYTE # 1.1 K/uL (0.8-4.0); LYMPHOCYTE % 4 %; MONOCYTE # 1.9 K/uL (0.0-1.0); SEGMENTED NEUTROPHIL # 24.3 K/uL (1.4-9.0); SEGMENTED NEUTROPHIL % 89 %
--- NOTE | 2016-09-02 07:02 | NUR ---
Significant Event: Patient a/ox3. Denies numbness and tingling. moves all extremities spotaneously and to command. left lower extremitiey slightly weaker. edema to lower extremities. dressing to right side of head c/d/i. colonoscopy today. patient unable to finish golytely prep so enemas were given x2. stools were loose and brown. Iv to left forearm running normal saline at 50ml/hr. IV to right upper arm saline locked. denies pain. up two assist with gait belt and walker. accuchecks q6hour, no coverage needed. Follow up:
--- NOTE | 2016-09-02 17:37 | NUR ---
ULTRA HIGH FALL RISK FELL 08/31 Significant Event: A/O X3, slow, repetitive, forgetful at times, friends/family @ bedside all shift, BX done in colonoscopy, small Loose BM x1, voids without difficulty, R)upperarm powerglide, saline lock L)Wrist, moves all extremities, 2 assist/gait belt/walker, drsg D/I to head, lungs diminished BLL, uses incentive spirometry Follow up: encourage incentive spirometry accuchecks
--- NOTE | 2016-09-03 01:53 | NUR ---
Significant Event: A/OX3. FORGETFUL. DENIES NUMBNESS AND TINGLING. MOVES ALL EXTREMITIES SPONTANEOUSLY AND TO COMMAND. EDEMA TO LOWER EXTREMITIES. IV TO LEFT FOREARM AND RIGHT UPPER ARM SALINE LOCKED. DRESSING TO RIGHT SIDE OF HEAD C/D/I. DENIES PAIN. UP 2 ASSIST WITH GAIT BELT AND WALKER. ACCUCHECKS Q6 HOURS ON MILD SCALE - NO COVERAGE NEEDED. VSS ON ROOM AIR. IN A FIB. LUNGS CLEAR AND DIMINISHED. Follow up:
[2016-09-03 04:20] LABS: ALBUMIN 2.1 gm/dL (3.5-5.0); ANION GAP 11.6 (10.0-19.0); BLOOD UREA NITROGEN 19 mg/dL (6-24); CHLORIDE 103 mMol/L (96-110); CO2 28 mMol/L (22-32); CREATININE 0.6 mg/dL (0.6-1.3); ESTIMATED GFR (MDRD EQUATION) > 60; POTASSIUM 3.6 mMol/L (3.7-5.1); SODIUM 139 mMol/L (135-145)
[2016-09-03 04:30] LABS: CALCIUM 7.3 mg/dL (8.5-10.5); PHOSPHORUS 1.4 mg/dL (2.5-4.9)
--- NOTE | 2016-09-03 11:36 | NUR ---
CONSULT RECEIVED D/T REQUESTING DIET INFO. WILL PROVIDE DIET INFO PRIOR TO DC.
--- NOTE | 2016-09-03 16:59 | NUR ---
ULTRA HIGH FALL RISK Significant Event: A/O X3, forgetful, follows all commands, 1 assist/gait belt/walker, ambulates in ortiz, up in chair, @ bedside. drsg D/I to head, voids per urinal, good appetite, saline lock L)wrist, Powerglide R)upper arm, BLE edema, encouraged incentive spirometry. Follow up: accuchecks, plan for Swing Bed this week
--- NOTE | 2016-09-04 01:53 | NUR ---
Significant Event: A/OX3. FORGETFUL. DENIES NUMBNESS AND TINGLING. MOVES ALL EXTREMITIES SPONTANEOUSLY AND TO COMMAND. EDEMA TO LOWER EXTREMITIES. IV TO LEFT FOREARM AND RIGHT UPPER ARM. K PHOS GIVEN THIS SHIFT. DRESSING TO RIGHT SIDE OF HEAD C/D/I. DENIES PAIN. UP 1 ASSIST GAIT BELT AND WALKER. ACCUCCHECKS Q6- NO COVERAGE NEEDED. VSS ON ROOM AIR. A FIB. LUNGS CLEAR AND DIMINISHED. Follow up: SWING BED THIS WEEK.
[2016-09-04 04:32] LABS: BASOPHIL % 0.1 %; EOSINOPHIL # 0.1 K/uL (0.0-0.5); EOSINOPHIL % 0.7 %; HEMATOCRIT 37.1 % (37.0-53.0); HEMOGLOBIN 12.6 g/dL (11.0-16.0); IMMATURE GRANULOCYTE # 0.1 K/uL (0.0-0.3); IMMATURE GRANULOCYTE % 0.7 %; LYMPHOCYTE # 1.5 K/uL (0.8-4.0); LYMPHOCYTE % 7.2 %; MCH 31.4 pg (27.0-34.0); MCV 92.5 fl (83.0-98.0); MONOCYTE # 1.4 K/uL (0.0-1.0); MONOCYTE % 6.9 %; MPV 9.8 fl (9.4-12.4); NEUTROPHIL # (ANC) 17.7 K/uL (1.4-9.0); NEUTROPHIL % 84.4 %; NRBC % 0 /100WBC (0-0.00); PLATELET COUNT 187 K/uL (150-450); RBC 4.01 M/uL (3.50-5.50); RDW-CV 13.2 % (11.9-14.6)
[2016-09-04 04:50] LABS: ANION GAP 12.2 (10.0-19.0); BLOOD UREA NITROGEN 12 mg/dL (6-24); CALCIUM 7.7 mg/dL (8.5-10.5); CHLORIDE 102 mMol/L (96-110); CO2 26 mMol/L (22-32); CREATININE 0.5 mg/dL (0.6-1.3); ESTIMATED GFR (MDRD EQUATION) > 60; MAGNESIUM 1.9 mg/dL (1.3-2.6); PHOSPHORUS 2.9 mg/dL (2.5-4.9); POTASSIUM 4.2 mMol/L (3.7-5.1); SODIUM 136 mMol/L (135-145)
--- NOTE | 2016-09-04 09:04 | NUR ---
CONSULT RECEIVED FOR PROTEIN SUPPLEMENTS TID; GLUCERNA STARTED TID W/MEALS
--- NOTE | 2016-09-04 10:44 | NUR ---
Update faxed to both [facility] also [facility]. Both are currently reviewing and will get back to me when they have made a decision. tells me that they want [facility] and then [facility] if they are given the option. I let her know as soon as I knew something I would update both her and Pablito and then they can make a decision from that point. Will continue to follow and assist.
--- NOTE | 2016-09-04 16:45 | NUR ---
ULTRA HIGH FALL RISK Significant Event: A/O X3, forgetful, disoriented this morning to time and place, reoriented as day progressed, ambulates in ortiz x2, up in chair, 1 assist/gait belt/walker, good appetite, jessica D/I to head incision, voids per urinal, No BM, TEDS/SCD's to BLE, BLE edema, xray L)knee obtained, Powerglide R)upper arm, uses incentive spirometry to 750 ml. at bedside. Follow up: plan for [facility] 11am tomorrow accuchecks AC/Bedtime - remove TEDS at bedtime hematest stool x3 -
[2016-09-05 04:19] LABS: BASOPHIL % 0.1 %; EOSINOPHIL # 0.3 K/uL (0.0-0.5); EOSINOPHIL % 1.8 %; HEMATOCRIT 39.3 % (37.0-53.0); HEMOGLOBIN 13.2 g/dL (11.0-16.0); IMMATURE GRANULOCYTE # 0.2 K/uL (0.0-0.3); IMMATURE GRANULOCYTE % 0.8 %; LYMPHOCYTE # 2.3 K/uL (0.8-4.0); LYMPHOCYTE % 12.5 %; MCH 30.8 pg (27.0-34.0); MCHC 33.6 gm/dL (32.0-36.5); MCV 91.8 fl (83.0-98.0); MONOCYTE # 1.4 K/uL (0.0-1.0); MONOCYTE % 7.5 %; MPV 9.6 fl (9.4-12.4); NEUTROPHIL # (ANC) 14.1 K/uL (1.4-9.0); NEUTROPHIL % 77.3 %; NRBC % 0 /100WBC (0-0.00); PLATELET COUNT 208 K/uL (150-450); RBC 4.28 M/uL (3.50-5.50); RDW-CV 13.2 % (11.9-14.6)
[2016-09-05 04:23] LABS: WBC 18.2 K/uL (4.0-11.0)
--- NOTE | 2016-09-05 07:30 | NUR ---
Significant Event:Patient a/o x 3. perrla. Denies n/t/pain. Moves all extremities spontaneously and to command. Lungs clear on room air. Bradycardic while sleeping, HR in 40s-50s. Htn at times. SBPs low 150s. Hematest x 3. Voids per urinal. Ambulates 1 Assist gaitbelt/walker. Dix to head open to air. Powerglide to right upper arm saline locked. ACHS accuchecks, no coverage this shift. at bedside. Follow up: SWB in [place] at 1100. [facility] to see pt for knee and hip.
--- NOTE | 2016-09-05 11:25 | NUR ---
ORDERS RECEIVED TO TRANSFER PATIENT TO [facility]. VSS.RA.JENNY REMOVED FROM RT LATERAL HEAD. INCISION LOOKS CLEAN, APPROXIMATED. PATIENT IS UP WITH 1 ASSIST+WALKER. UNSTEADY. A&OX3. FORGETFUL AT TIMES. LT SIDE SLIGHTLY WEAKER THAN THE RIGHT. HAS BEEN AT THE BEDSIDE.REPORT CALLED TO S[facility]INO CADLERÓN IN [place].
--- NOTE | 2016-09-05 11:42 | NUR ---
BRIEFLY SPOKE W/ PT REGARDING DIABETIC DIET, INFORMATION GIVEN ALONG W/ CARD. ENCOURAGED TO CALL W/ QUESTIONS IF NEEDED.
--- NOTE | 2016-09-05 12:01 | NUR ---
Call to Tamara this morning at [facility], let her know that we were still planning on Pablito coming to them today via personal auto at 1100. MD to MD was phoned in by Chavez Salazar and RN to RN was phoned in by SABINO Franco. states that she is having a friend from [place] come down and pick them up and drive them to the [facility]. Discharge meds/instructions were faxed over to [facility] prior to his dismissal. Both Dr. Carranza and Dr. Mathias saw Pablito before he was dismissed. Dr. Burr rounded on him as well to talk with him and about his issues with his knee. No interventions were done from what Dr. Burr reported. No other questions, needs or concerns. Will continue to follow and assist. Plan [facility] today.
== END 2016-09-05 12:49 | disposition swing bed (61) | DRG 25 ==
LOC: GICU 22:29 → GNTU 22:46 → GICU 23:00 → GNTU 08-27 17:14 → GICU 08-29 10:19 → GPCU 08-31 17:50 → GNTU 09-04 06:04
PROVIDERS: Family Medicine; Hospitalist; Internal Medicine; Neurological Surgery; Nurse Practitioner Family; Radiology Diagnostic Radiology; ADMIT Internal Medicine
PROC: 00U20JZ Supplement Dura Mater with Synthetic Substitute, Open Approach (ICD-10-PCS; principal; 2016-08-29)
PROC: 00B70ZZ Excision of Cerebral Hemisphere, Open Approach (ICD-10-PCS; principal; 2016-08-29)
PROC: 0DBM8ZX Excision of Descending Colon, Via Natural or Artificial Opening Endoscopic, Diagnostic (ICD-10-PCS; 2016-09-02)
PROC: 0DBH8ZX Excision of Cecum, Via Natural or Artificial Opening Endoscopic, Diagnostic (ICD-10-PCS; 2016-09-02)
PROC: 0DBL8ZX Excision of Transverse Colon, Via Natural or Artificial Opening Endoscopic, Diagnostic (ICD-10-PCS; 2016-09-02)
DX: C79.31 Secondary malignant neoplasm of brain (principal); G93.6 Cerebral edema; G93.40 Encephalopathy, unspecified; E44.0 Moderate protein-calorie malnutrition; I50.32 Chronic diastolic (congestive) heart failure; G81.94 Hemiplegia, unspecified affecting left nondominant side; I48.1 Persistent atrial fibrillation; I11.0 Hypertensive heart disease with heart failure; E11.65 Type 2 diabetes mellitus with hyperglycemia; G47.00 Insomnia, unspecified; C80.1 Malignant (primary) neoplasm, unspecified; N40.1 Benign prostatic hyperplasia with lower urinary tract symptoms; E66.9 Obesity, unspecified; M17.0 Bilateral primary osteoarthritis of knee; I27.2 Other secondary pulmonary hypertension; M16.12 Unilateral primary osteoarthritis, left hip; M47.9 Spondylosis, unspecified; M19.012 Primary osteoarthritis, left shoulder; M19.011 Primary osteoarthritis, right shoulder; K63.89 Other specified diseases of intestine; R29.810 Facial weakness; R91.8 Other nonspecific abnormal finding of lung field; R32 Unspecified urinary incontinence; T38.0X5A Adverse effect of glucocorticoids and synthetic analogues, initial encounter; Y92.230 Patient room in hospital as the place of occurrence of the external cause; Z53.20 Procedure and treatment not carried out because of patient's decision for unspecified reasons; Z68.30 Body mass index [BMI] 30.0-30.9, adult; Z87.891 Personal history of nicotine dependence
CPT/HCPCS: A9577; C1713; C1751; C8929; J0360; J0690; J1100; J1165; J1940; J2405; J7030; J7040; J7050; Q9957; Q9967